=== PATIENT | male | born 1980 | race Caucasian/White ===

== ENCOUNTER 2016-06-30 12:43 | Emergency (ER) | payer OTHER ==
--- NOTE | 2016-06-30 12:49 | ER Document Report ---
ED Medical Screen (RME) - General Stated Complaint: RIGHT KNEE PAIN Time seen by provider: 12:47 Mode of Arrival: Ambulatory Information source: Patient TRAVEL OUTSIDE OF THE [place] IN LAST 30 DAYS: No - HPI Patient complains to provider of: RIGHT KNEE PAIN Onset: Yesterday Onset/Duration: Sudden Context: RIGHT KNEE PAINFUL AND SWOLLEN, HX KNEE PROBLEMS. STATES HAS DONE THIS BEFORE. NO RECENT INJURY. Quality of pain: Throbbing Severity: Severe Pain Level: 5 Associated Symptoms: None Exacerbated by: Movement, Walking Relieved by: Denies Similar symptoms previously: Yes Recently seen / treated by doctor: No Notes: 06/30/16 12:48 RIGHT KNEE SURGERY IN 2005 OR FOR BROKEN KNEE CAP - Related Data Smoking: Cigarettes Frequency of alcohol use: None Drug Abuse: None Allergies/Adverse Reactions: No Known Allergies Allergy (Verified 05/07/16 09:02) Past Medical History Pulmonary Medical History: Reports: Hx Asthma, Hx Pneumonia Denies: Hx Tuberculosis Past Surgical History: Reports: Hx Orthopedic Surgery - 2006 - Immunizations Hx Diphtheria, Pertussis, Tetanus Vaccination: No
[2016-06-30 12:50] VITALS: BP 133/75
[2016-06-30] MEDS ORDERED: MORPHINE SULFATE 10 MG/ML INJ IM ONE (14:58)
--- NOTE | 2016-06-30 15:32 | ER Document Report ---
ED General - General Chief Complaint: Knee Pain Stated Complaint: RIGHT KNEE PAIN Mode of Arrival: Ambulatory Information source: Patient Notes: 35-year-old male presents with complaints of right knee swelling of 4 day duration. Patient denies any fevers or chills nausea vomiting or diarrhea. Patient notes multiple similar episodes in the past. TRAVEL OUTSIDE OF THE [place] IN LAST 30 DAYS: No - HPI Onset: Other Onset/Duration: Persistent Quality of pain: Achy Severity: Moderate Pain Level: 2 Associated symptoms: Other Exacerbated by: Movement Relieved by: Denies Similar symptoms previously: Yes Recently seen / treated by doctor: No - Related Data Allergies/Adverse Reactions: No Known Allergies Allergy (Verified 06/30/16 12:48) Past Medical History - General Information source: Patient - Social History Smoking Status: Current Every Day Smoker Cigarette use (# per day): No Chew tobacco use (# tins/day): No Smoking Education Provided: No Frequency of alcohol use: None Drug Abuse: None Family History: Reviewed & Not Pertinent Patient has suicidal ideation: No Patient has homicidal ideation: No Pulmonary Medical History: Reports: Hx Asthma, Hx Pneumonia Denies: Hx Tuberculosis Renal/ Medical History: Denies: Hx Peritoneal Dialysis Past Surgical History: Reports: Hx Orthopedic Surgery - 2006 - Immunizations Hx Diphtheria, Pertussis, Tetanus Vaccination: No Review of Systems - Review of Systems Notes: REVIEW OF SYSTEMS: CONSTITUTIONAL : Denies fever, chills, or sweats. Denies recent illness. EENT: Denies eye, ear, throat, or mouth pain or symptoms. Denies nasal or sinus congestion or discharge. Denies throat, tongue, or mouth swelling or difficulty swallowing. CARDIOVASCULAR: Denies chest pain. Denies palpitations or racing or irregular heart beat. Denies ankle edema. RESPIRATORY: Denies cough, cold, or chest congestion. Denies shortness of breath, difficulty breathing, or wheezing. GASTROINTESTINAL: Denies abdominal pain or distention. Denies nausea, vomiting , or diarrhea. Denies blood in vomitus, stools, or per rectum. Denies black, tarry stools. Denies constipation. GENITOURINARY: Denies difficulty urinating, painful urination, burning, frequency, blood in urine, or discharge. MUSCULOSKELETAL: admits ot right knee swelling SKIN: Denies rash, lesions or sores. HEMATOLOGIC : Denies easy bruising or bleeding. LYMPHATIC: Denies swollen, enlarged glands. NEUROLOGICAL: Denies confusion or altered mental status. Denies passing out or loss of consciousness. Denies dizziness or lightheadedness. Denies headache. Denies weakness or paralysis or loss of use of either side. Denies problems with gait or speech. Denies sensory loss, numbness, or tingling. Denies seizures. PSYCHIATRIC: Denies anxiety or stress. Denies depression, suicidal ideation, or homicidal ideation. ALL OTHER SYSTEMS REVIEWED AND NEGATIVE. Dictation was performed using [employer] voice recognition software PHYSICAL EXAMINATION: GENERAL: Well-appearing, well-nourished and in no acute distress. HEAD: Atraumatic, normocephalic. EYES: Pupils equal round and reactive to light, extraocular movements intact, sclera anicteric, conjunctiva are normal. ENT: Nares patent, oropharynx clear without exudates. Moist mucous membranes. NECK: Normal range of motion, supple without lymphadenopathy LUNGS: Breath sounds clear to auscultation bilaterally and equal. No wheezes rales or rhonchi. HEART: Regular rate and rhythm without murmurs ABDOMEN: Soft, nontender, nondistended abdomen. No guarding, no rebound. No masses appreciated. Musculoskeletal: Normal range of motion, no pitting or edema. No cyanosis. miderate effusion of the right knee, previous surgical scar noted, no redness NEUROLOGICAL: Cranial nerves grossly intact. Normal speech, normal gait. Normal sensory, motor exams PSYCH: Normal mood, normal affect. SKIN: Warm, Dry, normal turgor, no rashes or lesions noted. Physical Exam - Vital signs Vitals: Temp Pulse Resp BP Pulse Ox 98 F 84 20 133/75 H 99 06/30/16 12:45 06/30/16 12:45 06/30/16 12:45 06/30/16 12:45 06/30/16 12:45 Course - Re-evaluation Re-evalutation: 06/30/16 16:19 35 yr old male presents iwth right knee swelling, pt offered folow up with ortho but prefers to have arthrocentesis 06/30/16 16:20 with consent signed, 60 cc of fluid removed and sent ot lab, pt to follow up with ortho , very strict return precautions provided to the patient for any complications After performing a Medical Screening Examination, I estimate there is LOW risk for INTRACRANIAL HEMORRHAGE, UNSTABLE SPINE FRACTURE, CENTRAL CORD SYNDROME, CAUDA EQUINA, THORACIC AORTIC DISSECTION, PNEUMOTHORAX, PERFORATED BOWEL, RUPTURED ABDOMINAL AORTIC ANEURYSM, ACUTE TENDON RUPTURE, COMPARTMENT SYNDROME, or OPEN FRACTURE, thus I consider the discharge disposition reasonable. Also, there is no evidence or peritonitis, sepsis, or toxicity. The patient and I have discussed the diagnosis and risks, and we agree with discharging home to follow-up with their primary doctor with the understanding that symptoms and presentations can change. We also discussed returning to the Emergency Department immediately if new or worsening symptoms occur. We have discussed the symptoms which are most concerning (e.g., bloody stool, fever, changing or worsening pain, vomiting) that necessitate immediate return. - Vital Signs Vital signs: Temp Pulse Resp BP Pulse Ox 98.0 F 82 20 133/75 H 99 06/30/16 12:48 06/30/16 12:48 06/30/16 12:48 06/30/16 12:48 06/30/16 12:48 - Diagnostic Test Radiology reviewed: Image reviewed, Reports reviewed - report given to patient Procedures - Joint Aspiration Right Knee Time completed: 16:00 Consent obtained: Yes Joint aspiration pre-procedure: Sterile PPE donned, Betadine prep applied, Sterile drapes applied Anesthetic type: 2% Lidocaine mL's of anesthetic: 10 Needle size: 18 Amount/type of drainage: 60 cc of thick yellow and blood tinged fluid Number of attempts: 2 Complications: No Discharge - Discharge Clinical Impression: Effusion of knee joint right Knee pain Qualifiers: Laterality: right Chronicity: acute Qualified Code(s): M25.561 - Pain in right knee Condition: Stable Disposition: HOME, SELF-CARE Instructions: Suspected Internal Knee Injury ([facility]) Prescriptions: Oxycodone HCl/Acetaminophen [Percocet 5-325 mg Tablet] 1 - 2 tab PO Q4H PRN #15 tablet PRN Reason: Referrals: ANDREW HALL MD [ACTIVE STAFF] - Follow up in 3-5 days
[2016-06-30] MEDS ORDERED: LIDOCAINE 2% INJ (20 MG/ML) 20 ML MDV INJ ONE (15:37)
[2016-06-30 16:45] LABS: OTHER CRYSTALS NONE OBSERVED
[2016-06-30 21:05] LABS: FLUID TYPE SYNOVIAL
[2016-06-30 21:06] LABS: FLUID APPEARANCE CLOUDY
[2016-06-30 21:07] LABS: FLUID RBC SIDE 1 124; FLUID RBC SIDE 2 130
[2016-06-30 21:08] LABS: FLUID RBC DILUENT USED NONE USED; FLUID RBC DILUTION FACTOR 1; TOTAL RBC SQUARES COUNTED FLD 25
== END 2016-06-30 16:20 | disposition home or self-care (01) ==
LOC: ER 12:43
PROC: 0S9C3ZZ Drainage of Right Knee Joint, Percutaneous Approach (ICD-10-PCS; principal; 2016-06-30)
DX: M25.461 Effusion, right knee (principal); M25.561 Pain in right knee; F17.200 Nicotine dependence, unspecified, uncomplicated; J45.909 Unspecified asthma, uncomplicated; Z98.890 Other specified postprocedural states
CPT/HCPCS: 99284; 96372; 89050; 89060; 73564; 20610; J2270

== ENCOUNTER 2016-12-03 14:28 | Emergency (ER) | payer SELFPAY ==
[2016-12-03] MEDS ORDERED: CEFTRIAXONE INJ 1000 MG VIAL IM ONE (15:32)
[2016-12-03] MEDS ORDERED: LIDOCAINE 1% INJ-PF (10 MG/ML) 30 ML SDV INJ ONE (15:32)
--- NOTE | 2016-12-03 15:32 | ER Document Report ---
HPI - HPI Pain Level: 5 Notes: Patient is a 36-year-old male presents the ED complaining of right lateral ankle , foot, and lower leg pain and redness x2 days. Patient states that he has a history of gout and believes that he might have another gouty attack. Patient also complains of left lateral ankle discomfort 1 day. Denies any injury. He has not had any medicines for his symptoms. He does not have a primary care provider. Denies any drug allergies. He does not take any medicines daily. Nondiabetic. Denies any other significant past medical history. Does smoke but does not do any other illicit drugs. Denied alcohol use. Patient states that he still eating and drinking without any problems. Denies any headache, fever, URI, sore throat, chest pain, palpitations, syncope, cough, wheeze, shortness of breath, abdominal pain,/vomiting/diarrhea, dysuria, muscle weakness /paralysis. - ROS Notes: REVIEW OF SYSTEMS: CONSTITUTIONAL : Denies fever, chills, or sweats. Denies recent illness. EENT: Denies eye, ear, throat, or mouth pain or symptoms. Denies nasal or sinus congestion or discharge. Denies throat, tongue, or mouth swelling or difficulty swallowing. CARDIOVASCULAR: Denies chest pain. Denies palpitations or racing or irregular heart beat. Denies ankle edema. RESPIRATORY: Denies cough, cold, or chest congestion. Denies shortness of breath, difficulty breathing, or wheezing. GASTROINTESTINAL: Denies abdominal pain or distention. Denies nausea, vomiting , or diarrhea. Denies blood in vomitus, stools, or per rectum. Denies black, tarry stools. Denies constipation. GENITOURINARY: Denies difficulty urinating, painful urination, burning, frequency, blood in urine, or discharge. MUSCULOSKELETAL: see hpi SKIN: see hpi NEUROLOGICAL: no numbness/tingling. No HOGAN. see hpi. ALL OTHER SYSTEMS REVIEWED AND NEGATIVE. Dictation was performed using [employer] voice recognition software - CARDIOVASCULAR Cardiovascular: DENIES: Chest pain - REPRODUCTIVE Reproductive: DENIES: : - DERM Skin Color: Erythema Past Medical History - Social History Smoking Status: Current Every Day Smoker Chew tobacco use (# tins/day): No Frequency of alcohol use: None Drug Abuse: None Family History: Reviewed & Not Pertinent Patient has suicidal ideation: No Patient has homicidal ideation: No Pulmonary Medical History: Reports: Hx Asthma, Hx Pneumonia Denies: Hx Tuberculosis Renal/ Medical History: Denies: Hx Peritoneal Dialysis Musculoskeltal Medical History: Reports Hx Arthritis - gout Past Surgical History: Reports: Hx Orthopedic Surgery - 2007 - Immunizations Hx Diphtheria, Pertussis, Tetanus Vaccination: No Vertical Provider Document - CONSTITUTIONAL Agree With Documented VS: Yes Notes: PHYSICAL EXAMINATION: GENERAL: Well-appearing, well-nourished and in no acute distress. NECK: Normal range of motion, supple without lymphadenopathy LUNGS: Breath sounds clear to auscultation bilaterally and equal. No wheezes rales or rhonchi. HEART: Regular rate and rhythm without murmurs, rubs, gallops. ABDOMEN: Soft, nontender, nondistended abdomen. No guarding, no rebound. No masses appreciated. Normal bowel sounds present. No CVA tenderness bilaterally. Musculoskeletal: Rt LE: FROM to passive/active. Strength 5+/5. Sarah negative b /l. + erythema to the rt lateral ankle, distal lower leg, and dorsal foot. 1 + edema to the ankle/foot. 2+ pulses. sensation intact. No abscess, discharge. + lymphangitis to lower leg. No prox lymphadenopathy. Extremities: No cyanosis, clubbing, or edema b/l. Peripheral pulses 2+. Capillary refill less than 2 seconds. NEUROLOGICAL: Normal sensory, motor exams PSYCH: Normal mood, normal affect. SKIN: see MSK exam. - INFECTION CONTROL TRAVEL OUTSIDE OF THE [place] IN LAST 30 DAYS: No - RESPIRATORY O2 Sat by Pulse Oximetry: 98 Course - Re-evaluation Re-evalutation: 12/03/16 17:48 Diagnostic code: not lead-induced. diagnosis would not allow me to choose any other option. 12/03/16 20:13 Patient is an afebrile, well-hydrated, 36-year-old male who presents to the ED with cellulitis to his right lower extremity, ? Acute gout as well. Vitals are stable. Reviewed case with Dr. Horta also evaluated the patient. He recommended antibiotics, blood work, and consult with orthopedics. CBC, CMP, ESR, CRP, and BC's obtained. Rocephin 1g given IV[address] Dr. Bruce, Ortho on-call , who came in and evaluated the patient. See Ortho note. Pt cleared for discharge on Clindamycin 300mg QID along with Colchicine as directed. CBC unremarkable. Mildly elevated CRP and ESR. CMP showed mildly elevated LFT's. Conservative measures for symptoms. Recheck with PCM/Ortho in 2-3 days. May return to the ED for a recheck as well. Return to the ED with any worsening/ concerning symptoms otherwise as reviewed in discharge. Patient is in agreement. - Vital Signs Vital signs: Temp Pulse Resp BP Pulse Ox 98.2 F 93 18 122/64 98 12/03/16 14:32 12/03/16 14:32 12/03/16 14:32 12/03/16 14:32 12/03/16 14:32 - Laboratory Result Diagrams: 12/03/16 15:55 12/03/16 15:55 Discharge - Discharge Clinical Impression: Cellulitis Qualifiers: Site of cellulitis: extremity Site of cellulitis of extremity: lower extremity Laterality: right Qualified Code(s): L03.115 - Cellulitis of right lower limb Gout Qualifiers: Gout site: ankle Gout etiology: lead-induced Encounter type: initial encounter Chronicity: acute Laterality: right Qualified Code(s): T56.0X1A - Toxic effect of lead and its compounds, accidental (unintentional), initial encounter Condition: Stable Disposition: HOME, SELF-CARE Additional Instructions: Rest, Ice, Compression, Elevation Tylenol/ibuprofen as needed Take medications as directed Light stretches daily Strength exercises as able F/u with your PCM/ED in 2-3 days for a recheck Consider consult(s) with Orthopedics for ongoing/worsening symptoms Return to the ED with any worsening symptoms and/or development of fever, headache, chest pain, palpitations, syncope, shortness of breath, trouble breathing, abdominal pain, n/v/d, muscle weakness/paralysis, numbness/tingling, abscess, red streaks, purulent discharge, or other worsening symptoms that are concerning to you. Cellulitis You have an infection of your skin and underlying soft tissues called cellulitis. This is due to bacteria, which can enter through any break in the skin, or even through an irritated hair follicle. Untreated, cellulitis will usually worsen. Antibiotics are required. Usually, warm packs or warm soaks, and elevation of the infected area are recommended. You should start getting better within 24 to 36 hours. Most infections respond quickly to the right medication. Follow-up care is important, however, to check for abscess (boil) formation, unsuspected foreign body, or resistant infection. If you develop fever, chills, or if the area of infection is becoming rapidly more swollen or painful, call the doctor at once. Gout You have been diagnosed as having gout. Gout is a problem caused by an excess of uric acid, a natural chemical found in the body. The cause of this disease is unknown. Gout arthritis occurs when crystals of uric acid form in the joints. The big toe is the most common joint involved, but any joint can become affected. Persons with gout may also form uric acid kidney stones, resulting in flank pain and blood in the urine. Nodules of uric acid may form under the skin. The first step of treatment is to decrease the inflammation in the joint with antiinflammatory medication. Medication to lower the uric acid level in the blood may then be prescribed. This medication should be taken regularly, as any sudden change in dosage may provoke an attack of gout. Some foods, such as red meat, can provoke an attack in some gout sufferers. Call the doctor if new symptoms arise, or if you do not improve. Gout Diet Changing your diet can decrease the uric acid in your blood. High levels of uric acid cause gouty arthritis and uric acid kidney stones. If you have gout , you should avoid meats that are high in purine. Meat products to avoid include liver, kidneys, and brains. In general, poultry is better than red meats. Seafoods to avoid include anchovies, sardines, levine, mackerel, and scallops. In addition to limiting purine-rich foods, people with gout should limit protein intake to 10-15% of total calories. Carbohydrate intake should be around 50% of total daily calories. Limit fat intake to 30% of total daily calories. Cholesterol intake should be less than 300 mg/day. Maintain or achieve a healthy body weight. Weight loss should be gradual. Rapid weight loss can actually increase uric acid levels temporarily. Alcohol, especially beer, should be avoided. Get plenty of fluids. This dilutes urinary uric acid, and helps prevent uric acid kidney stones. Drink eight to twelve cups of water daily. Prescriptions: Clindamycin HCl [Cleocin 300 mg Capsule] 300 mg PO QID #40 capsule Colchicine [Colchicine 0.6 mg Tablet] 0.6 mg PO ASDIR #3 tablet Forms: Return to Work Referrals: FLORENCIA BRUCE DO [ACTIVE STAFF] - Follow up as needed [facility] [Provider Group] - Follow up as needed [facility] [Provider Group] - Follow up as needed
[2016-12-03 16:12] LABS: ABSOLUTE EOSINOPHILS # (AUTO) 0.2 10^3/uL (0.0-0.6); ABSOLUTE LYMPHOCYTES (AUTO) 1.6 10^3/uL (0.5-4.7); ABSOLUTE MONOCYTES (AUTO) 0.5 10^3/uL (0.1-1.4); ABSOLUTE NEUT (AUTO) 5.9 10^3/uL (1.7-8.2); BASOPHILS % (AUTO) 0.6 % (0-2); EOSINOPHILS % (AUTO) 2.9 % (0-6); HEMATOCRIT 44.2 % (37.9-51.0); HEMOGLOBIN 14.4 g/dL (13.5-17.0); LYMPHOCYTES % (AUTO) 18.9 % (13-45); MEAN CORPUSCULAR HEMOGLOBIN 28.9 pg (27.0-33.4); MEAN CORPUSCULAR HGB CONC 32.6 g/dL (32.0-36.0); MEAN CORPUSCULAR VOLUME 89 fl (80-97); MONOCYTES % (AUTO) 5.5 % (3-13); RED BLOOD COUNT 4.98 10^6/uL (4.35-5.55); RED CELL DISTRIBUTION WIDTH 13.5 % (11.5-14.0); SEGMENTED NEUTROPHILS % (AUTO) 72.1 % (42-78); WHITE BLOOD COUNT 8.2 10^3/uL (4.0-10.5)
[2016-12-03] MEDS ORDERED: CEFTRIAXONE INJ 1000 MG VIAL IV ONE (16:24)
[2016-12-03 16:33] LABS: ALANINE AMINOTRANSFERASE 104 U/L (21-72); ALBUMIN 4.1 g/dL (3.5-5.0); ALKALINE PHOSPHATASE 78 U/L (38-126); ANION GAP 11 (5-19); ASPARTATE AMINO TRANSFERASE 102 U/L (17-59); BILIRUBIN,DIRECT 0.3 mg/dL (0.0-0.4); BILIRUBIN,TOTAL 0.7 mg/dL (0.2-1.3); BLOOD UREA NITROGEN 8 mg/dL (7-20); C-REACTIVE PROTEIN 52.4 mg/L (<10.0); CALCIUM 9.1 mg/dL (8.4-10.2); CARBON DIOXIDE 29 mmol/L (22-30); CHLORIDE 101 mmol/L (98-107); CREATININE RESULT 0.83 mg/dL (0.52-1.25); GLUCOSE 77 mg/dL (75-110); POTASSIUM 3.6 mmol/L (3.6-5.0); SODIUM 140.8 mmol/L (137-145); TOTAL PROTEIN 7.2 g/dL (6.3-8.2)
[2016-12-03] MEDS ORDERED: KETOROLAC TROMETHAMINE INJ/PF 30 MG/1 ML SDV IV ONE (16:34)
[2016-12-03 16:54] LABS: ERYTHROCYTE SEDIMENTATION RATE 31 mm/hr (0-15)
--- NOTE | 2016-12-03 17:44 | PDOC CONSULTATION ---
History of Present Illness Patient complains of: Right ankle pain History of Present Illness: ROSMERY POLK JR is a 36 year old male presents with right ankle pain. States for the past 48 hours he had redness swelling and pain of his ankle which has worsened. Patient denies fever chills or sweats. Does have history of gout and feels that this is somewhat similar to his previous gouty symptoms. He is unable to determine what exactly exacerbates his gout. He does not take antigout medication and has no primary care physician. He denies numbness or tingling. Pain 11/03. Past Medical History Pulmonary Medical History: Reports: Asthma, Pneumonia Denies: Tuberculosis Musculoskeltal Medical History: Reports: Arthritis - gout Past Surgical History Past Surgical History: Reports: Orthopedic Surgery - 2007 Social History Smoking Status: Current Every Day Smoker Frequency of Alcohol Use: None Hx Recreational Drug Use: No Hx Prescription Drug Abuse: No Family History Family History: Reviewed & Not Pertinent Parental Family History Reviewed: No Children Family History Reviewed: No Sibling(s) Family History Reviewed.: No Medication/Allergy Home Medications: Cyclobenzaprine HCl [Flexeril 10 Mg Tablet] 10 mg PO TID PRN #15 tablet Hydrocodone Bit/Acetaminophen [Hydrocodon-Acetaminophen 5-325] 1 each PO ASDIR PRN #15 tablet 07/12/15 Cetirizine HCl/Pseudoephedrine [Zyrtec-D 12 Hour Tablet] 1 tab.sr PO Q12 #30 tab.sr 05/07/16 Prednisone [Deltasone 20 mg Tablet] 3 tab PO DAILY 5 Days 05/07/16 Tramadol HCl [Ultram 50 mg Tablet] 50 mg PO ASDIR PRN #20 tablet 05/07/16 Oxycodone HCl/Acetaminophen [Percocet 5-325 mg Tablet] 1 - 2 tab PO Q4H PRN #15 tablet 06/30/16 Allergies/Adverse Reactions: No Known Allergies Allergy (Verified 12/03/16 14:30) Review of Systems Constitutional: ABSENT: chills, fever(s), headache(s), weight gain, weight loss Eyes: ABSENT: visual disturbances Ears: ABSENT: hearing changes Cardiovascular: ABSENT: chest pain, dyspnea on exertion, edema, orthropnea, palpitations Respiratory: ABSENT: cough, hemoptysis Gastrointestinal: ABSENT: abdominal pain, constipation, diarrhea, hematemesis, hematochezia, nausea, vomiting Genitourinary: ABSENT: dysuria, hematuria Musculoskeletal: PRESENT: as per HPI Integumentary: PRESENT: rash. ABSENT: wounds Neurological: ABSENT: abnormal gait, abnormal speech, confusion, dizziness, focal weakness, syncope Psychiatric: ABSENT: anxiety, depression, homidical ideation, suicidal ideation Endocrine: ABSENT: cold intolerance, heat intolerance, menstrual abnormalities, polydipsia, polyuria Hematologic/Lymphatic: ABSENT: easy bleeding, easy bruising, lymphadenopathy Physical Exam Vital Signs: Temp Pulse Resp BP Pulse Ox 98.2 F 93 18 122/64 98 12/03/16 14:32 12/03/16 14:32 12/03/16 14:32 12/03/16 14:32 12/03/16 15:37 Intake & Output 12/02/16 12/03/16 12/04/16 06:59 06:59 06:59 Weight 87.09 kg General appearance: PRESENT: no acute distress, well-developed, well-nourished Head exam: PRESENT: atraumatic, normocephalic Eye exam: PRESENT: conjunctiva pink, EOMI, PERRLA. ABSENT: scleral icterus Ear exam: PRESENT: normal external ear exam Mouth exam: PRESENT: moist, tongue midline Neck exam: PRESENT: full ROM. ABSENT: carotid bruit, JVD, lymphadenopathy, thyromegaly Respiratory exam: PRESENT: unlabored Cardiovascular exam: PRESENT: RRR. ABSENT: diastolic murmur, rubs, systolic murmur Pulses: PRESENT: normal dorsalis pedis pul, +2 pedal pulses bilateral Vascular exam: PRESENT: normal capillary refill GI/Abdominal exam: PRESENT: normal bowel sounds, soft. ABSENT: distended, guarding, mass, organolmegaly, rebound, tenderness Rectal exam: PRESENT: deferred Musculoskeletal exam: PRESENT: other - Right ankle: Redness and erythema along the lateral aspect of the ankle extending from the dorsum of the foot to just proximal to the ankle joint. There is pain with touch mild pain with terminal dorsiflexion plantarflexion of the foot. No palpable effusion or effusion appreciated on examination. No sensory deficits. Left ankle: Mild erythema along the dorsum of the foot with out tenderness to palpation. No pain with range of motion. Neurological exam: PRESENT: alert, awake, oriented to person, oriented to place , oriented to time, oriented to situation, CN II-XII grossly intact. ABSENT: motor sensory deficit Psychiatric exam: PRESENT: appropriate affect, normal mood. ABSENT: homicidal ideation, suicidal ideation Skin exam: PRESENT: dry, intact, warm. ABSENT: cyanosis, rash Results Laboratory Results: 12/03/16 15:55 12/03/16 15:55 12/03/16 12/03/16 15:55 15:55 WBC 8.2 RBC 4.98 Hgb 14.4 Hct 44.2 MCV 89 MCH 28.9 MCHC 32.6 RDW 13.5 Plt Count 170 Seg Neutrophils % 72.1 Lymphocytes % 18.9 Monocytes % 5.5 Eosinophils % 2.9 Basophils % 0.6 Absolute Neutrophils 5.9 Absolute Lymphocytes 1.6 Absolute Monocytes 0.5 Absolute Eosinophils 0.2 Absolute Basophils 0.0 Sodium 140.8 Potassium 3.6 Chloride 101 Carbon Dioxide 29 Anion Gap 11 BUN 8 Creatinine 0.83 Est GFR ( Amer) > 60 Est GFR (Non-Af Amer) > 60 Glucose 77 Calcium 9.1 Total Bilirubin 0.7 AST 102 H ALT 104 H Alkaline Phosphatase 78 C-Reactive Protein 52.4 H Total Protein 7.2 Albumin 4.1 Assessment & Plan - Diagnosis (1) Ankle cellulitis Is this a current diagnosis for this admission?: Yes (2) Gout Qualifiers: Gout site: ankle Encounter type: initial encounter Chronicity: acute Laterality: right Is this a current diagnosis for this admission?: YesPlan: Patient has findings of both cellulitis and possible gouty arthritis I am unable to determine definitively which is the cause of his issue he does have some small skin lesions secondary to bug bites which may have caused his cellulitis given the fact he has redness bilaterally I feel this is more consistent with gout. I have reviewed patient's laboratory values which demonstrate mildly elevated sed rate with CRP of 5.2 no evidence of white count or left shift. At this point patient will receive IV antibiotics in the emergency room and sent home on p.o. antibiotics and a prescription for colchicine. If patient's symptoms do not improve he will follow-up at the emergency room. Otherwise patient should follow-up in my office within the next 5-7 days for recheck.
[2016-12-03 18:36] VITALS: BP 122/68
== END 2016-12-03 18:35 | disposition home or self-care (01) ==
LOC: ER 14:28
DX: T56.0X1A Toxic effect of lead and its compounds, accidental (unintentional), initial encounter (principal); L03.115 Cellulitis of right lower limb; M25.571 Pain in right ankle and joints of right foot; M79.604 Pain in right leg; F17.200 Nicotine dependence, unspecified, uncomplicated
CPT/HCPCS: 99283; 96375; 96365; 36415; 87040; 85025; 85652; 86140; 80053; J1885; J0696

== ENCOUNTER 2017-09-03 07:29 | Emergency (ER) | payer SELFPAY ==
--- NOTE | 2017-09-03 07:55 | ER Document Report ---
HPI - HPI Patient complains to provider of: Right knee pain Onset: Yesterday Onset/Duration: Gradual Pain Level: 5 Context: 36-year-old male with a history of fracture patella, medial meniscal tear suspected 1 year ago, gout 1 year ago developed right medial knee pain and something popping out and in yesterday. The knee started swelling last night. The pain is 5/5. No fever or chills. No recent injury. He is unable to extend fully due to the swelling of the joint. Associated Symptoms: None Exacerbated by: Walking Relieved by: Denies - ROS ROS below otherwise negative: Yes Systems Reviewed and Negative: Yes All other systems reviewed and negative - REPRODUCTIVE Reproductive: DENIES: : Past Medical History - General Information source: Patient - Social History Smoking Status: Current Some Day Smoker Frequency of alcohol use: None Drug Abuse: None Lives with: Spouse/Significant other Family History: Reviewed & Not Pertinent Pulmonary Medical History: Reports: Hx Asthma, Hx Pneumonia Renal/ Medical History: Denies: Hx Peritoneal Dialysis Musculoskeltal Medical History: Reports Hx Arthritis - gout Past Surgical History: Reports: Hx Orthopedic Surgery - 2006 - Immunizations Hx Diphtheria, Pertussis, Tetanus Vaccination: No Vertical Provider Document - CONSTITUTIONAL Agree With Documented VS: Yes Exam Limitations: No Limitations - INFECTION CONTROL TRAVEL OUTSIDE OF THE [place] IN LAST 30 DAYS: No - HEENT HEENT: Normal ENT Exam - NECK Neck: Supple - RESPIRATORY Respiratory: Breath Sounds Normal, No Respiratory Distress - CARDIOVASCULAR Cardiovascular: Regular Rate, Regular Rhythm - MUSCULOSKELETAL/EXTREMETIES Musculoskeletal/Extremeties: Tender Notes: Medial right knee, large effusion, not red but it is warm, neurovascular intact distally with 2+ DP. - NEURO Level of Consciousness: Awake, Alert Motor/Sensory: No Motor Deficit, No Sensory Deficit - DERM Integumentary: Warm, Dry, No Rash Course - Re-evaluation Re-evalutation: 09/03/17 10:14 Labs are normal, x-ray confirms the effusion that I can feel on physical exam. 09/03/17 10:[address] la for [facility], referral to [place]. - Vital Signs Vital signs: Temp Pulse Resp BP Pulse Ox 97.8 F 88 18 112/87 H 99 09/03/17 07:35 09/03/17 07:35 09/03/17 07:35 09/03/17 07:35 09/03/17 07:35 - Laboratory Result Diagrams: 09/03/17 09:36 09/03/17 09:36 Procedures - Immobilization Right Knee Time completed: 10:41 Pre-Proc Neuro Vasc Exam: Normal Immobilizer type: Knee immobilizer Performed by: PCT Post-Proc Neuro Vasc Exam: Normal Alignment checked and good: Yes Notes: 09/03/17 10:41 crutches fitted also Discharge - Discharge Clinical Impression: right knee pain and effusion Condition: Good Disposition: HOME, SELF-CARE Instructions: Anti-Inflammatory Medication ([facility]), Use of Crutches ([facility]), Ice & Elevation ([facility]), Knee Immobilizing Splint ([facility]) Additional Instructions: Anti-inflammatory medication as prescribed Pain medication for a day or 2 Knee immobilizer Crutches Follow-up Dr. marlow Prescriptions: Hydrocodone Bit/Acetaminophen [Hydrocodon-Acetaminophen 5-325] 1 each PO Q4HP PRN #15 tablet PRN Reason: Indomethacin [Indocin 50 Mg Capsule] 50 mg PO TID #20 capsule Forms: Return to Work Referrals: MONSE ROCKWELL MD [ACTIVE STAFF] - Follow up tomorrow (call for appointment)
[2017-09-03] MEDS ORDERED: IBUPROFEN 800 MG TABLET PO ONE (09:08)
[2017-09-03] MEDS ORDERED: ACETAMINOPHEN 325 MG TABLET PO ONE (09:08)
[2017-09-03] MEDS ORDERED: OXYCODONE HCL IR 5 MG TABLET PO ONE (09:21)
--- NOTE | 2017-09-03 09:36 | RADIOLOGY REPORT (SQ) ---
EXAM DESCRIPTION: KNEE RIGHT 4 VIEWS COMPLETED DATE/TIME: 09/03/2017 8:41 am REASON FOR STUDY: swelling COMPARISON: Right knee films 10/09/2012, 05/10/2013, 12/23/2013, 06/30/2016 NUMBER OF VIEWS: Four views. TECHNIQUE: AP, lateral, and both oblique radiographic images acquired of the right knee. LIMITATIONS: None. FINDINGS: MINERALIZATION: Osteopenic BONES: Patient has had an old patellar fracture. The articular surface of the patella and femur at t he patellofemoral joint exhibits osteoarthritis with articular surface sclerosis and osteophyte forma tion. No acute fracture. JOINT: Large suprapatellar knee joint effusion. There are intra-articular loose bodies along the pos terior intercondylar notch region. Advanced patellofemoral osteoarthritis. No significant joint space narrowing in the medial or latera l compartment. SOFT TISSUES: No soft tissue swelling. No radio-opaque foreign body. OTHER: No other significant finding. IMPRESSION: Large suprapatellar knee joint effusion with advanced osteoarthritis in the patellofemor al compartment. Intra-articular loose bodies. No acute fracture or malalignment. TECHNICAL DOCUMENTATION: JOB ID: [id number] [employer]- All Rights Reserved Reading location - IP/workstation name: [email or web address]
[2017-09-03 09:50] LABS: ABSOLUTE BASOPHILS # (AUTO) 0.1 10^3/uL (0.0-0.2); ABSOLUTE EOSINOPHILS # (AUTO) 0.1 10^3/uL (0.0-0.6); ABSOLUTE LYMPHOCYTES (AUTO) 2.5 10^3/uL (0.5-4.7); ABSOLUTE MONOCYTES (AUTO) 0.8 10^3/uL (0.1-1.4); ABSOLUTE NEUT (AUTO) 6.7 10^3/uL (1.7-8.2); BASOPHILS % (AUTO) 0.8 % (0-2); EOSINOPHILS % (AUTO) 1.2 % (0-6); HEMATOCRIT 41.2 % (37.9-51.0); HEMOGLOBIN 13.7 g/dL (13.5-17.0); LYMPHOCYTES % (AUTO) 24.8 % (13-45); MEAN CORPUSCULAR HEMOGLOBIN 27.2 pg (27.0-33.4); MEAN CORPUSCULAR HGB CONC 33.3 g/dL (32.0-36.0); MEAN CORPUSCULAR VOLUME 81 fl (80-97); MONOCYTES % (AUTO) 7.8 % (3-13); PLATELET COUNT 220 10^3/uL (150-450); RED BLOOD COUNT 5.06 10^6/uL (4.35-5.55); RED CELL DISTRIBUTION WIDTH 13.9 % (11.5-14.0); SEGMENTED NEUTROPHILS % (AUTO) 65.4 % (42-78); TOTAL CELLS COUNTED % (AUTO) 100 %; WHITE BLOOD COUNT 10.2 10^3/uL (4.0-10.5)
[2017-09-03 10:02] LABS: ALANINE AMINOTRANSFERASE 25 U/L (21-72); ALKALINE PHOSPHATASE 83 U/L (38-126); ANION GAP 8 (5-19); ASPARTATE AMINO TRANSFERASE 15 U/L (17-59); BILIRUBIN,DIRECT 0.1 mg/dL (0.0-0.4); BILIRUBIN,TOTAL 0.4 mg/dL (0.2-1.3); BLOOD UREA NITROGEN 15 mg/dL (7-20); CALCIUM 9.4 mg/dL (8.4-10.2); CARBON DIOXIDE 27 mmol/L (22-30); CHLORIDE 104 mmol/L (98-107); GLUCOSE 96 mg/dL (75-110); POTASSIUM 4.7 mmol/L (3.6-5.0); TOTAL PROTEIN 6.9 g/dL (6.3-8.2); URIC ACID 4.1 mg/dL (3.5-8.5)
[2017-09-03 10:47] VITALS: BP 147/96
== END 2017-09-03 10:47 | disposition home or self-care (01) ==
LOC: ER 07:29
DX: M25.461 Effusion, right knee (principal); M25.561 Pain in right knee; F17.200 Nicotine dependence, unspecified, uncomplicated
CPT/HCPCS: 99284; 36415; 84550; 85025; 80053; 73564; L1830

== ENCOUNTER 2018-05-25 23:04 | Inpatient (IN) | payer SELFPAY ==
[2018-05-25] MEDS ORDERED: HYDROCODONE/ACETAMINOPHEN 5-325 MG TABLET PO ONE (23:34)
--- NOTE | 2018-05-26 00:03 | RADIOLOGY REPORT (SQ) ---
EXAM DESCRIPTION: XR FINGERS COMPLETED DATE/TME: 05/25/2018 00:00 CLINICAL HISTORY: 37 years, Male, Metal splinter removed/ infection/ swollen COMPARISON: None. NUMBER OF VIEWS: 3 views of the left second digit TECHNIQUE: 3 views left second digit LIMITATIONS: None. FINDINGS: Diffuse soft tissue swelling. Negative for acute fracture or dislocation. No definitive soft tissue gas. Soft tissue injury along the palmar aspect near the middle phalanx is suggested. IMPRESSION: Soft tissue swelling/soft tissue injury. No acute osseous abnormality. copyright 2010 [employer]- All Rights Reserved
[2018-05-26 00:23] LABS: HEMOGLOBIN 10.7 g/dL (13.5-17.0); MEAN CORPUSCULAR HEMOGLOBIN 26.7 pg (27.0-33.4); MEAN CORPUSCULAR HGB CONC 33.4 g/dL (32.0-36.0); MEAN CORPUSCULAR VOLUME 80 fl (80-97); PLATELET COUNT 550 10^3/uL (150-450); RED CELL DISTRIBUTION WIDTH 15.4 % (11.5-14.0); WHITE BLOOD COUNT 25.3 10^3/uL (4.0-10.5)
[2018-05-26 00:36] LABS: ALANINE AMINOTRANSFERASE 108 U/L (21-72); ALBUMIN 2.9 g/dL (3.5-5.0); ALKALINE PHOSPHATASE 158 U/L (38-126); ANION GAP 11 (5-19); ASPARTATE AMINO TRANSFERASE 131 U/L (17-59); BILIRUBIN,DIRECT 0.5 mg/dL (0.0-0.4); BILIRUBIN,TOTAL 0.5 mg/dL (0.2-1.3); BLOOD UREA NITROGEN 17 mg/dL (7-20); CALCIUM 8.3 mg/dL (8.4-10.2); CARBON DIOXIDE 26 mmol/L (22-30); CHLORIDE 96 mmol/L (98-107); GLUCOSE 118 mg/dL (75-110); POTASSIUM 3.9 mmol/L (3.6-5.0); SODIUM 133.2 mmol/L (137-145); TOTAL PROTEIN 8.1 g/dL (6.3-8.2)
--- NOTE | 2018-05-26 00:36 | ER Document Report ---
ED General - General Chief Complaint: Hand Pain Stated Complaint: FINGER INJURY Time Seen by Provider: 05/25/18 23:27 Notes: Patient is a 37-year-old male who presents to the emergency department with a chief complaint of left index finger pain and swelling. He states he has been working on his car and he got a piece of metal in his finger 2 days ago. He noticed that he was having increased swelling today. There has been purulent drainage draining from the site. He also has multiple other ulcerations on other fingers that he states is due to working on his car. He denies any fever. He does have a history of IV drug abuse. His last time he used was 1 month ago. He does smoke cigarettes. TRAVEL OUTSIDE OF THE [place] IN LAST 30 DAYS: No - Related Data Allergies/Adverse Reactions: No Known Allergies Allergy (Verified 09/03/17 07:30) Past Medical History - Social History Smoking Status: Current Every Day Smoker Chew tobacco use (# tins/day): No Frequency of alcohol use: None Drug Abuse: None Family History: Reviewed & Not Pertinent Patient has suicidal ideation: No Patient has homicidal ideation: No Pulmonary Medical History: Reports: Hx Asthma, Hx Pneumonia Denies: Hx Tuberculosis Renal/ Medical History: Denies: Hx Peritoneal Dialysis Musculoskeletal Medical History: Reports Hx Arthritis - gout Past Surgical History: Reports: Hx Orthopedic Surgery - 2007 - Immunizations Hx Diphtheria, Pertussis, Tetanus Vaccination: No Review of Systems - Review of Systems Notes: REVIEW OF SYSTEMS: CONSTITUTIONAL : Denies recent illness. Denies recent unintentional weight loss. Denies fever, chills, or sweats. EENT: Denies eye, ear, throat, or mouth pain, discharge, or symptoms. Denies nasal or sinus congestion. CARDIOVASCULAR: Denies chest pain. RESPIRATORY: Denies shortness of breath, cough, congestion, difficulty [place] athing, or wheezing. GASTROINTESTINAL: Denies nausea, vomiting, and diarrhea. Denies abdominal pain. Denies constipation. GENITOURINARY: Denies difficulty urinating, burning, blood in urine, urgency or frequency. MUSCULOSKELETAL: Denies neck and back pain. Denies joint pain or swelling. SKIN: See HPI HEMATOLOGIC : Denies easy bruising or bleeding. LYMPHATIC: Denies swollen, painful, enlarged glands. NEUROLOGICAL: Denies no numbness or tingling denies weakness. Denies headache. Denies altered mental status. Denies alteration in speech. PSYCHIATRIC: Denies stress, anxiety, alteration in sleep patterns, or depression. All other systems reviewed and negative. Physical Exam - Vital signs Vitals: Temp Pulse Resp BP Pulse Ox 98.7 F 112 H 18 142/81 H 91 L 05/25/18 23:20 05/25/18 23:20 05/25/18 23:20 05/25/18 23:20 05/25/18 23:20 - Notes Notes: PHYSICAL EXAMINATION: GENERAL: Appears unkempt, no acute distress. HEAD: Normocephalic, atraumatic. EYES: PERRL, conjunctiva normal, all extraocular movements intact, sclera nonicteric ENT: Moist mucous membranes. NECK: Supple, no noticeable swelling, redness, rash. Normal range of motion. LUNGS: Equal breath sounds bilaterally and clear to auscultation. No wheezes rales or rhonchi. CARDIOVASCULAR: S1-S2, tachycardic, regular rhythm. Radial pulses 2+, normal. ABDOMEN: Normoactive bowel sounds. Soft, nontender, no guarding, no rebound tenderness, and no masses palpated. EXTREMITIES: Normal strength and range of motion, no pitting or edema. No cyanosis. NEUROLOGICAL: Moves all extremities upon command. Strength 5/5 in all extremities. PSYCH: Normal mood, normal affect. SKIN: Warm, dry. Multiple ulcerations noted to multiple fingers. Abscess noted to left index finger DIP. Patient unable to flex at the DIP joint. Course - Re-evaluation Re-evalutation: 05/26/18 00:00 Based off patient's physical exam and swelling, there is a possibility she can be septic from cellulitis. He is tachycardic upon presentation to the emergency department. Labs will be sent for further evaluation. He will also have a x- ray of his left index finger to evaluate for osteomyelitis. 05/26/18 00:53 Patient's white count is 25,000 with a shift to the left. I spoke with Dr. Craig and about the patient's cellulitis and swelling at the DIP joint. He is in agreement's to have the patient admitted under the hospitalist service and have orthopedic consult. 05/26/18 01:[address] Sam, the hospitalist on-call. The patient will be admitted to the hospitalist service. I have discussed this with the patient and he is in agreement. - Vital Signs Vital signs: Temp Pulse Resp BP Pulse Ox 98.7 F 112 H 18 142/81 H 91 L 05/25/18 23:20 05/25/18 23:20 05/25/18 23:20 05/25/18 23:20 05/25/18 23:20 - Laboratory Result Diagrams: 05/26/18 00:02 05/26/18 00:02 Laboratory results interpreted by me: 05/26/18 05/26/18 05/26/18 00:02 00:02 01:07 WBC 25.3 H RBC 4.00 L Hgb 10.7 L Hct 32.0 L MCH 26.7 L RDW 15.4 H Plt Count 550 H Seg Neuts % (Manual) 85 H Lymphocytes % (Manual) 12 L Abs Neuts (Manual) 21.5 H Sodium 133.2 L Chloride 96 L Glucose 118 H Lactic Acid < 0.5 L Calcium 8.3 L Direct Bilirubin 0.5 H AST 131 H ALT 108 H Alkaline Phosphatase 158 H Albumin 2.9 L Discharge - Discharge Clinical Impression: Tobacco use disorder, moderate, dependence, Cellulitis and abscess of hand Condition: Fair Disposition: ADMITTED INPATIENT Admitting Provider: Hospitalist Unit Admitted: Medical Floor
[2018-05-26 00:41] LABS: ABSOLUTE MONOCYTES # (MANUAL) 0.8 10^3/uL (0.1-1.4); ABSOLUTE NEUTROPHILS# (MANUAL) 21.5 10^3/uL (1.7-8.2); ANISOCYTOSIS 1+; BASOPHILS % (MANUAL) 0 % (0-2); EOSINOPHILS % (MANUAL) 0 % (0-6); LYMPHOCYTES % (MANUAL) 12 % (13-45); MONOCYTES % (MANUAL) 3 % (3-13); POLYCHROMASIA 1+; SEGMENTED NEUTROPHILS % (MAN) 85 % (42-78); TOTAL CELLS COUNTED 100
[2018-05-26 00:42] LABS: PLATELET COMMENT ADEQUATE
[2018-05-26] MEDS ORDERED: VANCOMYCIN HCL INJ 1000 MG VIAL IV ONE (00:46)
[2018-05-26] MEDS ORDERED: PIPERACILLIN/TAZOBACTAM 3.375 GM VIAL IV ONE (00:46)
[2018-05-26] MEDS ORDERED: MAGNESIUM HYDROXIDE SUSP 30 ML UDCUP PO PRN (01:05)
[2018-05-26] MEDS ORDERED: ONDANSETRON 4 MG TAB.RAPDIS PO PRN ×2 (01:05→10:30)
[2018-05-26] MEDS ORDERED: ONDANSETRON HCL INJ/PF 4 MG/2 ML SDV IV PRN ×2 (01:05→10:30)
[2018-05-26] MEDS ORDERED: MAG HYDROX/AL HYDROX/SIMETH SUSP 30 ML UDCUP PO PRN (01:05)
[2018-05-26] MEDS ORDERED: ALBUTEROL SULFATE 0.083% NEB 2.5 MG/3 ML AMPUL NEB PRN (01:12)
[2018-05-26] MEDS ORDERED: ACETAMINOPHEN 325 MG TABLET PO PRN (01:12)
[2018-05-26] MEDS ORDERED: ACETAMINOPHEN 650 MG SUPP.RECT PR PRN (01:12)
[2018-05-26] MEDS ORDERED: NICOTINE 21 MG/24 HR PATCH.TD24 TD PRN (01:12)
[2018-05-26 02:10] LABS: APPEARANCE,URINE CLOUDY; BILIRUBIN,URINE NEGATIVE (NEGATIVE); COLOR,URINE YELLOW; GLUCOSE, URINE NEGATIVE (NEGATIVE); KETONES,URINE NEGATIVE (NEGATIVE); LEUKOCYTE ESTERASE,URINE NEGATIVE (NEGATIVE); NITRITE,URINE NEGATIVE (NEGATIVE); PROTEIN,URINE 30 mg/dL (NEGATIVE); URINE SPECIFIC GRAVITY 1.025
[2018-05-26] MEDS ORDERED: NALBUPHINE HCL INJ 10 MG/1 ML AMPULE ONE (02:33)
[2018-05-26 02:40] LABS: URINE BARBITURATES SCREEN NEGATIVE; URINE BENZODIAZEPINES SCREEN NEGATIVE; URINE COCAINE SCREEN NEGATIVE; URINE MARIJUANA (THC) SCREEN NEGATIVE; URINE METHADONE SCREEN NEGATIVE; URINE PHENCYCLIDINE SCREEN NEGATIVE
[2018-05-26] MEDS: NALBUPHINE HCL INJ 10 MG/1 ML AMPULE IV PRN ×2 (02:51→05:48)
--- NOTE | 2018-05-26 03:59 | PDOC H&P ---
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 He admits that he got a piece of metal stuck in his left index finger 2 days ago while he was working on a car and since that time and his gradually in creased in pain and over the last 24 hours has increased substantially and swelling. He has also noted purulent drainage from the puncture site of the metallic foreign body. His pain is a constant, severe, throbbing, nonradiating, pressure of the entire left index finger. The pain is slightly relieved by elevation and is substantially worsened with flexion or palpation of his left index finger. He denies any associated symptoms. He admits numerous similar prior episodes, however none have been of this severity. In the emergency room he was found to have a 25,000 white blood count and drainage of his left index finger. Wound and blood cultures were obtained and he was started on empiric antibiotic therapy with Zosyn and vancomycin. Dr. Craig was consulted by the emergency room physician and asked patient be admitted by the hospitalist service for his consultation and treatment. Past Medical History Cardiac Medical History: Denies: Coronary Artery Disease, Hypertension Pulmonary Medical History: Reports: Asthma, Pneumonia Denies: Chronic Obstructive Pulmonary Disease (COPD), Respiratory Failure, Tuberculosis EENT Medical History: Reports: None Neurological Medical History: Denies: Migraine, Seizures Endocrine Medical History: Denies: Diabetes Mellitus Type 1, Diabetes Mellitus Type 2, Hyperthyroidism, Hypothyroidism Renal/ Medical History: Denies: Chronic Kidney Disease, Nephrolithiasis Malignancy Medical History: Reports: None GI Medical History: Denies: Cirrhosis, Hepatitis Musculoskeltal Medical History: Reports: Arthritis, Gout Denies: Fibromyalgia Skin Medical History: Denies: Eczema, Psoriasis Psychiatric Medical History: Reports: Substance Abuse, Tobacco Dependency Denies: Alcohol Dependency Traumatic Medical History: Reports: None Hematology: Denies: Anemia, Bleeding Tendencies Infectious Medical History: Reports: None Past Surgical History Past Surgical History: Reports: Orthopedic Surgery - 2006 Social History Information Source: Patient Smoking Status: Current Every Day Smoker Frequency of Alcohol Use: None Hx Recreational Drug Use: Yes Drugs: Other - IV Methamphetamine, last used 3-4 weeks ago Hx Prescription Drug Abuse: No - Advance Directive Resuscitation Status: Full Code Surrogate healthcare decision maker:: Lexie Booker Family History Family History: Hypertension Parental Family History Reviewed: Yes Children Family History Reviewed: No Sibling(s) Family History Reviewed.: Yes Medication/Allergy Home Medications: Cyclobenzaprine HCl [Flexeril 10 Mg Tablet] 10 mg PO TID PRN #15 tablet 07/12/15 Hydrocodone Bit/Acetaminophen [Hydrocodon-Acetaminophen 5-325] 1 each PO ASDIR PRN #15 tablet 07/12/15 Cetirizine HCl/Pseudoephedrine [Zyrtec-D 12 Hour Tablet] 1 tab.sr PO Q12 #30 tab.sr 05/07/16 Prednisone [Deltasone 20 mg Tablet] 3 tab PO DAILY 5 Days tablet 05/07/16 Tramadol HCl [Ultram 50 mg Tablet] 50 mg PO ASDIR PRN #20 tablet 05/07/16 Oxycodone HCl/Acetaminophen [Percocet 5-325 mg Tablet] 1 - 2 tab PO Q4H PRN #15 tablet 06/30/16 Clindamycin HCl [Cleocin 300 mg Capsule] 300 mg PO QID #40 capsule 12/03/16 Colchicine [Colchicine 0.6 mg Tablet] 0.6 mg PO ASDIR #3 tablet 12/03/16 Hydrocodone Bit/Acetaminophen [Hydrocodon-Acetaminophen 5-325] 1 each PO Q4HP PRN #15 tablet 09/03/17 Indomethacin [Indocin 50 Mg Capsule] 50 mg PO TID #20 capsule 09/03/17 Allergies/Adverse Reactions: No Known Allergies Allergy (Verified 09/03/17 07:30) Review of Systems Constitutional: ABSENT: chills, fever(s) Eyes: ABSENT: visual disturbances, other - Ocular pain Ears: ABSENT: hearing changes, other - Ear pain Nose, Mouth, and Throat: ABSENT: mouth pain, sore throat Cardiovascular: ABSENT: chest pain, palpitations Respiratory: ABSENT: cough, dyspnea Gastrointestinal: ABSENT: abdominal pain, constipation, diarrhea, nausea, vomiting Genitourinary: ABSENT: dysuria, hematuria Musculoskeletal: PRESENT: as per HPI - Painful swelling and purulent drainage of left index finger. ABSENT: back pain Integumentary: PRESENT: as per HPI. ABSENT: pruritus, rash Neurological: ABSENT: confusion, convulsions, memory loss, tremor(s) Psychiatric: ABSENT: anxiety, depression Endocrine: ABSENT: cold intolerance, heat intolerance Hematologic/Lymphatic: ABSENT: easy bleeding, easy bruising Physical Exam Vital Signs: Temp Pulse Resp BP Pulse Ox 98.7 F 112 H 18 142/81 H 91 L 05/25/18 23:20 05/25/18 23:20 05/25/18 23:20 05/25/18 23:20 05/25/18 23:20 Intake & Output 05/24/18 05/25/18 05/26/18 23:59 23:59 23:59 Weight 70.3 kg General appearance: PRESENT: no acute distress, cooperative Head exam: PRESENT: atraumatic, normocephalic Eye exam: PRESENT: conjunctiva pink. ABSENT: scleral icterus Ear exam: PRESENT: normal external ear exam. ABSENT: drainage Mouth exam: PRESENT: dry mucosa, neck supple Teeth exam: PRESENT: poor dentation Neck exam: ABSENT: JVD, thyromegaly, tracheal deviation Respiratory exam: PRESENT: clear to auscultation ronaldo, symmetrical, unlabored Cardiovascular exam: PRESENT: RRR. ABSENT: clicks, gallop, rubs Pulses: PRESENT: normal radial pulses, normal dorsalis pedis pul Vascular exam: PRESENT: normal capillary refill. ABSENT: pallor GI/Abdominal exam: PRESENT: normal bowel sounds, soft Rectal exam: PRESENT: deferred Extremities exam: PRESENT: other - Erythema, edema, induration and local tenderness with minimal purulent drainage from a puncture/laceration site on the lateral palmar aspect of the distal phalanx of the left index finger. ABSENT: calf tenderness, pedal edema Musculoskeletal exam: ABSENT: deformity, dislocation Neurological exam: PRESENT: alert, oriented to person, oriented to place, oriented to time, oriented to situation, CN II-XII grossly intact. ABSENT: motor sensory deficit Psychiatric exam: PRESENT: appropriate affect, normal mood Skin exam: PRESENT: dry, warm, other - Erythema, edema, induration and local te nderness with minimal purulent drainage from a puncture/laceration site on the lateral palmar aspect of the distal phalanx of the left index finger. ABSENT: jaundice, rash, urticaria Results Laboratory Results: 05/26/18 00:02 05/26/18 00:02 05/26/18 05/26/18 00:02 00:02 WBC 25.3 H RBC 4.00 L Hgb 10.7 L Hct 32.0 L MCV 80 MCH 26.7 L MCHC 33.4 RDW 15.4 H Plt Count 550 H Seg Neutrophils % Not Reportable Lymphocytes % Not Reportable Monocytes % Not Reportable Eosinophils % Not Reportable Basophils % Not Reportable Absolute Neutrophils Not Reportable Absolute Lymphocytes Not Reportable Absolute Monocytes Not Reportable Absolute Eosinophils Not Reportable Absolute Basophils Not Reportable Sodium 133.2 L Potassium 3.9 Chloride 96 L Carbon Dioxide 26 Anion Gap 11 BUN 17 Creatinine 0.76 Est GFR ( Amer) > 60 Est GFR (Non-Af Amer) > 60 Glucose 118 H Calcium 8.3 L Total Bilirubin 0.5 AST 131 H ALT 108 H Alkaline Phosphatase 158 H Total Protein 8.1 Albumin 2.9 L Impressions: Finger X-Ray 05/25/18 00:00 IMPRESSION: Soft tissue swelling/soft tissue injury. No acute osseous abnormality. copyright 2010 [employer]- All Rights Reserved Assessment & Plan - Diagnosis (1) Cellulitis of left index finger Is this a current diagnosis for this admission?: Yes (2) Tobacco use disorder, moderate, dependence Is this a current diagnosis for this admission?: Yes (3) History of intravenous drug abuse Is this a current diagnosis for this admission?: Yes (4) History of acute gouty arthritis Is this a current diagnosis for this admission?: Yes - Time Time Spent: 30 to 50 Minutes Critical Time spent with patient: Less than 15 minutes Smoking Cessation Education: 3 to 10 minutes Medications reviewed and adjusted accordingly: Yes Anticipated discharge: Home - Inpatient Certification Based on my medical assessment, after consideration of the patient's co morbidities, presenting symptoms, or acuity I expect that the services needed warrant INPATIENT care.: Yes I certify that my determination is in accordance with my understanding of Medicare's requirements for reasonable and necessary INPATIENT services [42 CFR 412.3e].: Yes Medical Necessity: Need for IV Antibiotics, Need for Surgery, Risk of Complication if Not Cared For in Hospital
[2018-05-26] MEDS: HEPARIN SOD (PORCINE) 5,000 UNIT/ML 1 ML SYRINGE SUBCUT SCH ×3 (05:48→21:13)
[2018-05-26] MEDS ORDERED: PIPERACILLIN/TAZOBACTAM 3.375 GM VIAL IV SCH (06:00)
--- NOTE | 2018-05-26 07:01 | PDOC CONSULTATION ---
Consultation Consult Date: 05/26/18 Consult reason:: Left index finger flexor Seda synovitis History of Present Illness Admission Date/PCP: 05/26/18 01:13 History of Present Illness: ROSMERY POLK JR is a 37 year old male Patient is a 37-year-old white male who presents with left nondominant index finger pain status post a penetrating injury while working on an automobile. He states that he removed the metal shard but he subsequently had this progressive pain swelling and functional disability since that time. Past Medical History Cardiac Medical History: Denies: Coronary Artery Disease, Hypertension Pulmonary Medical History: Reports: Asthma, Pneumonia Denies: Chronic Obstructive Pulmonary Disease (COPD), Respiratory Failure, Tuberculosis EENT Medical History: Reports: None Neurological Medical History: Denies: Migraine, Seizures Endocrine Medical History: Denies: Diabetes Mellitus Type 1, Diabetes Mellitus Type 2, Hyperthyroidism, Hypothyroidism Renal/ Medical History: Denies: Chronic Kidney Disease, Nephrolithiasis Malignancy Medical History: Reports: None GI Medical History: Denies: Cirrhosis, Hepatitis Musculoskeltal Medical History: Reports: Arthritis, Gout Denies: Fibromyalgia Skin Medical History: Denies: Eczema, Psoriasis Psychiatric Medical History: Reports: Substance Abuse, Tobacco Dependency Denies: Alcohol Dependency, Depression Traumatic Medical History: Reports: None Hematology: Denies: Anemia, Bleeding Tendencies Infectious Medical History: Reports: None Past Surgical History Past Surgical History: Reports: Orthopedic Surgery - 2007 Social History Information Source: Patient, [facility] Records Smoking Status: Current Every Day Smoker Cigarettes Packs Per Day: 2 Frequency of Alcohol Use: None Hx Recreational Drug Use: Yes Drugs: Other - IV Methamphetamine, last used 3-4 weeks ago Hx Prescription Drug Abuse: No - Advance Directive Resuscitation Status: Full Code Family History Family History: Reviewed & Not Pertinent, Hypertension Parental Family History Reviewed: No Children Family History Reviewed: No Sibling(s) Family History Reviewed.: No Medication/Allergy Home Medications: Cyclobenzaprine HCl [Flexeril 10 Mg Tablet] 10 mg PO TID PRN #15 tablet 07/12/15 Hydrocodone Bit/Acetaminophen [Hydrocodon-Acetaminophen 5-325] 1 each PO ASDIR PRN #15 tablet 07/12/15 Cetirizine HCl/Pseudoephedrine [Zyrtec-D 12 Hour Tablet] 1 tab.sr PO Q12 #30 tab.sr 05/07/16 Prednisone [Deltasone 20 mg Tablet] 3 tab PO DAILY 5 Days tablet 05/07/16 Tramadol HCl [Ultram 50 mg Tablet] 50 mg PO ASDIR PRN #20 tablet 05/07/16 Oxycodone HCl/Acetaminophen [Percocet 5-325 mg Tablet] 1 - 2 tab PO Q4H PRN #15 tablet 06/30/16 Clindamycin HCl [Cleocin 300 mg Capsule] 300 mg PO QID #40 capsule 12/03/16 Colchicine [Colchicine 0.6 mg Tablet] 0.6 mg PO ASDIR #3 tablet 12/03/16 Hydrocodone Bit/Acetaminophen [Hydrocodon-Acetaminophen 5-325] 1 each PO Q4HP PRN #15 tablet 09/03/17 Indomethacin [Indocin 50 Mg Capsule] 50 mg PO TID #20 capsule 09/03/17 Allergies/Adverse Reactions: No Known Allergies Allergy (Verified 09/03/17 07:30) Review of Systems All systems: as per PMH Physical Exam Vital Signs: Temp Pulse Resp BP Pulse Ox 37.2 C 103 H 20 129/72 H 96 05/26/18 03:14 05/26/18 03:14 05/26/18 03:14 05/26/18 03:14 05/26/18 03:14 Intake & Output 05/24/18 05/25/18 05/26/18 06:59 06:59 06:59 Intake Total 0 Output Total 0 Balance 0 Weight 69.7 kg Physical Exam: Patient is a relatively thin middle-aged white male lying in hospital bed. Left upper extremity is held in his lap. There is considerable swelling with skin breakdown over the volar surface at the level of the DIP crease. There is streaking erythema that moves proximally through the palmar crease and up to the radiocarpal crease. There is diffuse tenderness to palpation. There is brisk capillary refill. General appearance: PRESENT: mild distress, thin Head exam: PRESENT: normocephalic Respiratory exam: PRESENT: unlabored Cardiovascular exam: PRESENT: RRR Pulses: PRESENT: +1 pedal pulses bilateral Vascular exam: PRESENT: normal capillary refill GI/Abdominal exam: PRESENT: soft Rectal exam: PRESENT: deferred Extremities exam: PRESENT: other - Left index finger swollen erythematous tender to palpation. Passive range of motion is painful. Erythema extends proximally to the radiocarpal crease. There is brisk capillary refill. Neurological exam: PRESENT: alert, awake, oriented to person, oriented to place, oriented to time, oriented to situation. ABSENT: motor sensory deficit Psychiatric exam: PRESENT: appropriate affect, normal mood. ABSENT: homicidal ideation, suicidal ideation Skin exam: PRESENT: dry, intact, warm. ABSENT: cyanosis, rash Results Laboratory Results: 05/26/18 00:02 05/26/18 00:02 05/26/18 05/26/18 05/26/18 00:02 00:02 01:07 WBC 25.3 H RBC 4.00 L Hgb 10.7 L Hct 32.0 L MCV 80 MCH 26.7 L MCHC 33.4 RDW 15.4 H Plt Count 550 H Seg Neutrophils % Not Reportable Lymphocytes % Not Reportable Monocytes % Not Reportable Eosinophils % Not Reportable Basophils % Not Reportable Absolute Neutrophils Not Reportable Absolute Lymphocytes Not Reportable Absolute Monocytes Not Reportable Absolute Eosinophils Not Reportable Absolute Basophils Not Reportable Sodium 133.2 L Potassium 3.9 Chloride 96 L Carbon Dioxide 26 Anion Gap 11 BUN 17 Creatinine 0.76 Est GFR ( Amer) > 60 Est GFR (Non-Af Amer) > 60 Glucose 118 H Lactic Acid < 0.5 L Calcium 8.3 L Total Bilirubin 0.5 AST 131 H ALT 108 H Alkaline Phosphatase 158 H Total Protein 8.1 Albumin 2.9 L Urine Color Urine Appearance Urine pH Ur Specific [place] Urine Protein Urine Glucose (UA) Urine Ketones Urine Blood Urine Nitrite Ur Leukocyte Esterase Urine WBC (Auto) Urine RBC (Auto) 05/26/18 01:53 WBC RBC Hgb Hct MCV MCH MCHC RDW Plt Count Seg Neutrophils % Lymphocytes % Monocytes % Eosinophils % Basophils % Absolute Neutrophils Absolute Lymphocytes Absolute Monocytes Absolute Eosinophils Absolute Basophils Sodium Potassium Chloride Carbon Dioxide Anion Gap BUN Creatinine Est GFR ( Amer) Est GFR (Non-Af Amer) Glucose Lactic Acid Calcium Total Bilirubin AST ALT Alkaline Phosphatase Total Protein Albumin Urine Color YELLOW Urine Appearance CLOUDY Urine pH 5.0 Ur Specific [place] 1.025 Urine Protein 30 H Urine Glucose (UA) NEGATIVE Urine Ketones NEGATIVE Urine Blood MODERATE H Urine Nitrite NEGATIVE Ur Leukocyte Esterase NEGATIVE Urine WBC (Auto) 3 Urine RBC (Auto) 2 Impressions: Finger X-Ray 05/25/18 00:00 IMPRESSION: Soft tissue swelling/soft tissue injury. No acute osseous abnormality. copyright 2011 [employer]- All Rights Reserved Status: Imported from PACS Assessment & Plan - Diagnosis (1) Cellulitis of left index finger Is this a current diagnosis for this admission?: Yes Plan: 37-year-old white male with what I believed to be a flexor Seda synovitis of the left index finger pain. Plan will be for an I&D under choice anesthesia with subsequent administration of intravenous antibiotics. - Time Time Spent: 50 to 70 Minutes Anticipated discharge: Home with Homehealth Within: Other
[2018-05-26] MEDS ORDERED: BACITRACIN INJ 50,000 UNIT VIAL ONE (08:19)
[2018-05-26] MEDS: IPRATROPIUM BROMIDE 0.02% NEB 0.5 MG/2.5 ML AMPUL NEB SCH ×2 (08:22→15:46)
[2018-05-26] MEDS: BUDESONIDE NEB 0.5 MG/2 ML AMPUL NEB SCH ×2 (08:23→20:14)
[2018-05-26] MEDS: LEVALBUTEROL HCL NEB 1.25 MG/3 ML AMPUL NEB SCH ×2 (08:23→15:46)
[2018-05-26] MEDS ORDERED: LIDOCAINE 1% INJ-PF (10 MG/ML) 30 ML SDV ONE (08:29)
[2018-05-26] MEDS ORDERED: BUPIVACAINE HCL 0.25 % INJ/PF (2.5 MG/1 ML) 30 ML VIAL ONE (08:29)
[2018-05-26] MEDS ORDERED: FENTANYL CITRATE INJ/PF 100 MCG/2 ML AMPUL ONE (09:37)
[2018-05-26] MEDS ORDERED: MIDAZOLAM 2 MG/2 ML INJ ONE (09:37)
[2018-05-26] MEDS ORDERED: PROPOFOL INJ 200 MG/20 ML VIAL IV ONE (09:37)
[2018-05-26] MEDS ORDERED: ONDANSETRON HCL INJ/PF 4 MG/2 ML SDV ONE (09:37)
[2018-05-26] MEDS ORDERED: NALBUPHINE HCL INJ 10 MG/1 ML AMPULE IV PRN (10:19)
[2018-05-26] MEDS ORDERED: MORPHINE SULFATE 10 MG/ML INJ IV PRN ×2 (10:37→11:32)
[2018-05-26] MEDS ORDERED: PROMETHAZINE HCL INJ 25 MG/1 ML VIAL IV PRN (10:37)
[2018-05-26] MEDS ORDERED: DIPHENHYDRAMINE HCL 50 MG/ML VIAL IV PRN (10:37)
[2018-05-26] MEDS ORDERED: MEPERIDINE HCL/PF INJ 25 MG/1 ML DISP.SYRIN IV PRN (10:37)
[2018-05-26] MEDS ORDERED: FENTANYL CITRATE INJ/PF 100 MCG/2 ML AMPUL IV PRN ×3 (10:37)
--- NOTE | 2018-05-26 10:55 | Operative Report ---
Operative Report DATE OF SURGERY: 05/26/18 PREOPERATIVE DIAGNOSIS: Left index finger flexor tendon purulent tenosynovitis OPERATION: Irrigation debridement left flexor tendon sheath index finger SURGEON: ANDREW HALL ANESTHESIA: LMAC ESTIMATED BLOOD LOSS: Minimal PROCEDURE: With the patient supine on the operating table the left upper extremities prepped and draped in a sterile fashion. The limb is elevated for exsanguination tourniquet inflated to 280 torr. A digital finger block is made with a combination of Marcaine, and Xylocaine. Subsequently a zigzag type incision is made from the ulnar border of the distal aspect of the distal phalanx across to the radial border at the DIP crease likewise diagonally to the ulnar border of the PIP crease and then again radially to the MCP crease. The flexor tendon sheath is examined throughout it. Cultures are taken. The wound is irrigated using 3 L normal saline containing bacitracin and gravity feed through an Angiocath. The tourniquet is subsequently deflated. Hemostasis obtained with bipolar cautery. The wound is loosely approximated using up and nylon suture. A sterile compressive dressing was applied and the patient's retu rn to PACU in satisfactory condition.
[2018-05-26] MEDS ORDERED: RINGERS SOLUTION,LACTATED 1,000 ML IV PRN (11:31)
[2018-05-26] MEDS: PIPERACILLIN SODIUM/TAZOBACTAM 3.375 GM in NORMAL SALINE 100 ML IV SCH ×3 (13:07→21:12)
[2018-05-26] MEDS: FAMOTIDINE INJ/PF 20 MG/2 ML SDV IV SCH ×2 (13:08→21:12)
[2018-05-26] MEDS: DOCUSATE SODIUM 100 MG CAPSULE PO SCH ×2 (13:08→17:02)
[2018-05-26] MEDS ORDERED: VANCOMYCIN HCL INJ 1000 MG VIAL IV SCH (14:00)
[2018-05-26] MEDS: VANCOMYCIN HCL 1,000 MG in DEXTROSE 5%-WATER 250 ML IV SCH ×2 (14:17→21:12)
[2018-05-26] MEDS: OXYCODONE HCL IR 5 MG TABLET PO PRN (22:07)
[2018-05-27] MEDS: LEVALBUTEROL HCL NEB 1.25 MG/3 ML AMPUL NEB SCH ×3 (00:22→16:31)
[2018-05-27] MEDS: IPRATROPIUM BROMIDE 0.02% NEB 0.5 MG/2.5 ML AMPUL NEB SCH ×3 (00:22→16:31)
[2018-05-27] MEDS: PIPERACILLIN SODIUM/TAZOBACTAM 3.375 GM in NORMAL SALINE 100 ML IV SCH ×4 (03:21→21:11)
[2018-05-27] MEDS: OXYCODONE HCL IR 5 MG TABLET PO PRN ×3 (04:00→20:09)
[2018-05-27] MEDS: HEPARIN SOD (PORCINE) 5,000 UNIT/ML 1 ML SYRINGE SUBCUT SCH ×3 (05:45→21:10)
[2018-05-27 06:24] LABS: VANCOMYCIN,TROUGH 9.2 ug/mL (5.0-20.0)
[2018-05-27 06:25] LABS: ABSOLUTE BASOPHILS # (AUTO) 0.1 10^3/uL (0.0-0.2); ABSOLUTE EOSINOPHILS # (AUTO) 0.1 10^3/uL (0.0-0.6); ABSOLUTE LYMPHOCYTES (AUTO) 2.6 10^3/uL (0.5-4.7); ABSOLUTE MONOCYTES (AUTO) 1.5 10^3/uL (0.1-1.4); ABSOLUTE NEUT (AUTO) 15.2 10^3/uL (1.7-8.2); BASOPHILS % (AUTO) 0.5 % (0-2); EOSINOPHILS % (AUTO) 0.5 % (0-6); HEMATOCRIT 32.6 % (37.9-51.0); HEMOGLOBIN 10.6 g/dL (13.5-17.0); LYMPHOCYTES % (AUTO) 13.2 % (13-45); MEAN CORPUSCULAR HGB CONC 32.6 g/dL (32.0-36.0); MEAN CORPUSCULAR VOLUME 80 fl (80-97); MONOCYTES % (AUTO) 7.8 % (3-13); PLATELET COUNT 502 10^3/uL (150-450); RED BLOOD COUNT 4.08 10^6/uL (4.35-5.55); RED CELL DISTRIBUTION WIDTH 15.3 % (11.5-14.0); TOTAL CELLS COUNTED % (AUTO) 100 %; WHITE BLOOD COUNT 19.5 10^3/uL (4.0-10.5)
[2018-05-27 06:26] LABS: ANION GAP 6 (5-19); BLOOD UREA NITROGEN 9 mg/dL (7-20); CALCIUM 7.7 mg/dL (8.4-10.2); CARBON DIOXIDE 27 mmol/L (22-30); CHLORIDE 103 mmol/L (98-107); GLUCOSE 101 mg/dL (75-110); POTASSIUM 3.8 mmol/L (3.6-5.0); SODIUM 136.4 mmol/L (137-145)
[2018-05-27] MEDS: VANCOMYCIN HCL 1,000 MG in DEXTROSE 5%-WATER 250 ML IV SCH ×2 (06:40→13:13)
[2018-05-27] MEDS: BUDESONIDE NEB 0.5 MG/2 ML AMPUL NEB SCH ×2 (07:52→20:46)
--- NOTE | 2018-05-27 08:49 | PDOC PROGRESS REPORT ---
Subjective Progress Note for:: 05/27/18 Subjective:: Patient laying in bed comfortably. No issues overnight. Current pain controlled. Denies fever chills or sweats. Reason For Visit: CELLULITIS WITH ABSCESS LEFT INDEX FINGER Physical Exam Vital Signs: Temp Pulse Resp BP Pulse Ox 97.9 F 81 12 129/76 H 96 05/27/18 07:06 05/27/18 07:06 05/27/18 07:06 05/27/18 07:06 05/27/18 07:06 Intake & Output 05/26/18 05/27/18 05/28/18 06:59 06:59 06:59 Intake Total 0 4425 250 Output Total 0 2004 Balance 0 2420 250 Weight 69.7 kg 69.6 kg Musculoskeletal exam: PRESENT: other - Left upper extremity: Dressing clean/dry/intact. Tenderness to palpation. Pain with attempted range of motion. Results Laboratory Results: 05/27/18 05:43 05/27/18 05:43 05/27/18 05/27/18 05:43 05:43 WBC 19.5 H RBC 4.08 L Hgb 10.6 L Hct 32.6 L MCV 80 MCH 26.0 L MCHC 32.6 RDW 15.3 H Plt Count 502 H Seg Neutrophils % 78.0 Lymphocytes % 13.2 Monocytes % 7.8 Eosinophils % 0.5 Basophils % 0.5 Absolute Neutrophils 15.2 H Absolute Lymphocytes 2.6 Absolute Monocytes 1.5 H Absolute Eosinophils 0.1 Absolute Basophils 0.1 Sodium 136.4 L Potassium 3.8 Chloride 103 Carbon Dioxide 27 Anion Gap 6 BUN 9 Creatinine 0.67 Est GFR ( Amer) > 60 Est GFR (Non-Af Amer) > 60 Glucose 101 Calcium 7.7 L Magnesium 2.2 Impressions: Finger X-Ray 05/25/18 00:00 IMPRESSION: Soft tissue swelling/soft tissue injury. No acute osseous abnormality. copyright 2010 [employer]- All Rights Reserved Assessment & Plan - Diagnosis (1) Flexor tenosynovitis of finger Is this a current diagnosis for this admission?: Yes Plan: Postop day #1 status post irrigation and debridement flexor sheath left index finger 1. Continue vancomycin and Zosyn may adjust according to culture results. If patient's wound healing appropriately and pain controlled with anticipate discharge home on p.o. antibiotics. 2. Continue compressive dressing as per Dr. Craig's recommendation anticipate dressing change on postop day #2.
[2018-05-27] MEDS: FAMOTIDINE INJ/PF 20 MG/2 ML SDV IV SCH ×2 (09:06→21:12)
[2018-05-27] MEDS: DOCUSATE SODIUM 100 MG CAPSULE PO SCH ×2 (09:06→17:10)
--- NOTE | 2018-05-27 14:08 | PDOC PROGRESS REPORT ---
Subjective Progress Note for:: 05/27/18 Subjective:: This is a 37 year old male who presented to the emergency room with gradually worsening painful swelling of his left index finger for the last 2 days. He admits that he got a piece of metal stuck in his left index finger 2 days ago while he was working on a car and since that time and his gradually increased in pain and over the last 24 hours has increased substantially and swelling. He has also noted purulent drainage from the puncture site of the metallic foreign body. Patient was admitted for left index finger cellulitis. Orthopedics was consulted and patient was found to have left index finger flexor tendon purulent tenosynovitis for which he underwent irrigation debridement yesterday 05/26/18. No acute event overnight. Patient says pain pain is well controlled. No fever or chills. Reason For Visit: CELLULITIS WITH ABSCESS LEFT INDEX FINGER Physical Exam Vital Signs: Temp Pulse Resp BP Pulse Ox 97.9 F 81 12 129/76 H 96 05/27/18 07:06 05/27/18 07:06 05/27/18 07:06 05/27/18 07:06 05/27/18 07:06 Intake & Output 05/26/18 05/27/18 05/28/18 06:59 06:59 06:59 Intake Total 0 4425 550 Output Total 0 2005 Balance 0 2420 550 Weight 153 lb 10.595 oz 153 lb 7.068 oz General appearance: PRESENT: no acute distress, well-developed, well-nourished Head exam: PRESENT: atraumatic, normocephalic Eye exam: PRESENT: conjunctiva pink, EOMI, PERRLA. ABSENT: scleral icterus Ear exam: PRESENT: normal external ear exam Neck exam: ABSENT: carotid bruit, JVD, lymphadenopathy, thyromegaly Respiratory exam: PRESENT: clear to auscultation ronaldo. ABSENT: rales, rhonchi, wheezes Cardiovascular exam: PRESENT: RRR. ABSENT: diastolic murmur, rubs, systolic murmur Pulses: PRESENT: normal dorsalis pedis pul GI/Abdominal exam: PRESENT: normal bowel sounds, soft. ABSENT: distended, guarding, mass, organolmegaly, rebound, tenderness Rectal exam: PRESENT: deferred Extremities exam: PRESENT: other - post op dressing onleft hand in place Neurological exam: PRESENT: alert, awake, oriented to person, oriented to place, oriented to time, oriented to situation, CN II-XII grossly intact. ABSENT: motor sensory deficit Results Laboratory Results: 05/27/18 05:43 05/27/18 05:43 05/27/18 05/27/18 05:43 05:43 WBC 19.5 H RBC 4.08 L Hgb 10.6 L Hct 32.6 L MCV 80 MCH 26.0 L MCHC 32.6 RDW 15.3 H Plt Count 502 H Seg Neutrophils % 78.0 Lymphocytes % 13.2 Monocytes % 7.8 Eosinophils % 0.5 Basophils % 0.5 Absolute Neutrophils 15.2 H Absolute Lymphocytes 2.6 Absolute Monocytes 1.5 H Absolute Eosinophils 0.1 Absolute Basophils 0.1 Sodium 136.4 L Potassium 3.8 Chloride 103 Carbon Dioxide 27 Anion Gap 6 BUN 9 Creatinine 0.67 Est GFR ( Amer) > 60 Est GFR (Non-Af Amer) > 60 Glucose 101 Calcium 7.7 L Magnesium 2.2 Impressions: Finger X-Ray 05/25/18 00:00 IMPRESSION: Soft tissue swelling/soft tissue injury. No acute osseous abnormality. copyright 2010 [employer]- All Rights Reserved Assessment & Plan - Diagnosis (1) Cellulitis of left index finger Is this a current diagnosis for this admission?: Yes Plan: Patient was noted to have left index finger flexor tendon purulent tenosynovitis for which he underwent irrigation debridement yesterday 05/26/18 by ortho. Noted ortho recommendations to continue IV antibiotics today. Culture results pending. Dressing change tomorrow per ortho. Possible discharge tomorrow with oral antibiotics pending culture results. - Time Time Spent with patient: 15-24 minutes
--- NOTE | 2018-05-27 18:47 | Progress Note ---
Provider Note Provider Note: Paged by RN at 6:45 PM and informed that patient eloped from the floor. Security has been notified. Patient apparently returned back to the floor.
[2018-05-27] MEDS: VANCOMYCIN HCL 1,500 MG in DEXTROSE 5%-WATER 250 ML IV SCH (22:00)
[2018-05-28] MEDS: LEVALBUTEROL HCL NEB 1.25 MG/3 ML AMPUL NEB SCH ×2 (00:07→08:31)
[2018-05-28] MEDS: IPRATROPIUM BROMIDE 0.02% NEB 0.5 MG/2.5 ML AMPUL NEB SCH ×2 (00:07→08:31)
[2018-05-28] MEDS: PIPERACILLIN SODIUM/TAZOBACTAM 3.375 GM in NORMAL SALINE 100 ML IV SCH (03:24)
[2018-05-28] MEDS: HEPARIN SOD (PORCINE) 5,000 UNIT/ML 1 ML SYRINGE SUBCUT SCH (06:07)
[2018-05-28] MEDS: VANCOMYCIN HCL 1,500 MG in DEXTROSE 5%-WATER 250 ML IV SCH (06:09)
[2018-05-28 06:13] LABS: ABSOLUTE BASOPHILS # (AUTO) 0.1 10^3/uL (0.0-0.2); ABSOLUTE EOSINOPHILS # (AUTO) 0.2 10^3/uL (0.0-0.6); ABSOLUTE MONOCYTES (AUTO) 1.4 10^3/uL (0.1-1.4); ABSOLUTE NEUT (AUTO) 14.6 10^3/uL (1.7-8.2); BASOPHILS % (AUTO) 0.6 % (0-2); EOSINOPHILS % (AUTO) 1.2 % (0-6); HEMATOCRIT 33.3 % (37.9-51.0); LYMPHOCYTES % (AUTO) 15.6 % (13-45); MEAN CORPUSCULAR HEMOGLOBIN 26.9 pg (27.0-33.4); MEAN CORPUSCULAR VOLUME 82 fl (80-97); MONOCYTES % (AUTO) 7.3 % (3-13); PLATELET COUNT 548 10^3/uL (150-450); RED BLOOD COUNT 4.08 10^6/uL (4.35-5.55); RED CELL DISTRIBUTION WIDTH 15.2 % (11.5-14.0); SEGMENTED NEUTROPHILS % (AUTO) 75.3 % (42-78); TOTAL CELLS COUNTED % (AUTO) 100 %; WHITE BLOOD COUNT 19.4 10^3/uL (4.0-10.5)
[2018-05-28 06:20] LABS: ANION GAP 7 (5-19); BLOOD UREA NITROGEN 14 mg/dL (7-20); CALCIUM 7.9 mg/dL (8.4-10.2); CARBON DIOXIDE 24 mmol/L (22-30); CHLORIDE 106 mmol/L (98-107); GLUCOSE 99 mg/dL (75-110); POTASSIUM 4.1 mmol/L (3.6-5.0)
--- NOTE | 2018-05-28 07:12 | PDOC PROGRESS REPORT ---
Subjective Progress Note for:: 05/28/18 Reason For Visit: CELLULITIS WITH ABSCESS LEFT INDEX FINGER Left index finger tenosynovitis postop day 2. Cultures pending. Patient continues to have significant pain. Physical Exam Vital Signs: Temp Pulse Resp BP Pulse Ox 37.0 C 97 20 118/70 98 05/27/18 19:21 05/27/18 19:21 05/27/18 19:21 05/27/18 19:21 05/27/18 19:21 Intake & Output 05/27/18 05/28/18 05/29/18 06:59 06:59 06:59 Intake Total 4425 2071 Output Total 2004 Balance 2420 2072 Weight 69.6 kg 69.4 kg General appearance: PRESENT: mild distress Respiratory exam: PRESENT: unlabored Cardiovascular exam: PRESENT: RRR Vascular exam: PRESENT: normal capillary refill Extremities exam: PRESENT: other - Dressing is changed today. Wound is well approximated with sutures. There is scant serous drainage. Erythema is dramatically decreased as is induration and swelling. There is brisk capillary refill. Active range of motion is painful laterally for the index finger but also for the long finger. Results Laboratory Results: 05/28/18 05:34 05/28/18 05:34 05/28/18 05/28/18 05:34 05:34 WBC 19.4 H RBC 4.08 L Hgb 11.0 L Hct 33.3 L MCV 82 MCH 26.9 L MCHC 33.0 RDW 15.2 H Plt Count 548 H Seg Neutrophils % 75.3 Lymphocytes % 15.6 Monocytes % 7.3 Eosinophils % 1.2 Basophils % 0.6 Absolute Neutrophils 14.6 H Absolute Lymphocytes 3.0 Absolute Monocytes 1.4 Absolute Eosinophils 0.2 Absolute Basophils 0.1 Sodium 137.0 Potassium 4.1 Chloride 106 Carbon Dioxide 24 Anion Gap 7 BUN 14 Creatinine 1.02 Est GFR ( Amer) > 60 Est GFR (Non-Af Amer) > 60 Glucose 99 Calcium 7.9 L Magnesium 2.3 Impressions: Finger X-Ray 05/25/18 00:00 IMPRESSION: Soft tissue swelling/soft tissue injury. No acute osseous abnormality. copyright 2010 [email or web address]- All Rights Reserved Status: Imported from PACS Assessment & Plan - Diagnosis (1) Cellulitis of left index finger Is this a current diagnosis for this admission?: Yes Plan: Patient currently on vancomycin and Zosyn pending cultures. Overall the physical appearance of the digit is significantly improved. The patient is quite concerned about his 10-year-old daughter and being discharged that he can care for her. I explained that he might be better to remain hospitalized until we identify the pathogen such that the antibiotics can be more directed. However from a wound standpoint I think the patient could be discharged at this point. - Time Time Spent with patient: 15-24 minutes Anticipated discharge: Home Within: Other
[2018-05-28 07:57] VITALS: BP 116/68
[2018-05-28] MEDS: BUDESONIDE NEB 0.5 MG/2 ML AMPUL NEB SCH (08:31)
--- NOTE | 2018-05-28 18:31 | PDOC DISCHARGE SUMMARY ---
General - Admit/Disc Date/PCP Admission Date/Primary Care Provider: 05/26/18 01:13 Discharge Date: 05/28/18 - Discharge Diagnosis (1) Cellulitis of left index finger Is this a current diagnosis for this admission?: Yes - Additional Information Resuscitation Status: Full Code Discharge Diet: As Tolerated Discharge Activity: Activity As Tolerated Prescriptions: Doxycycline Hyclate 150 mg PO BID 7 Days #14 tablet. Home Medications: Doxycycline Hyclate 150 mg PO BID 7 Days #14 tablet. 05/28/18 History of Present Illness History of Present Illness: Admitting hospitalist's H&P: ROSMERY POLK JR is a 37 year old male who presented to the emergency room with gradually worsening painful swelling of his left index finger for the last 2 days. He admits that he got a piece of metal stuck in his left index finger 2 d ays ago while he was working on a car and since that time and his gradually increased in pain and over the last 24 hours has increased substantially and swelling. He has also noted purulent drainage from the puncture site of the metallic foreign body. His pain is a constant, severe, throbbing, nonradiating, pressure of the entire left index finger. The pain is slightly relieved by elevation and is substantially worsened with flexion or palpation of his left index finger. He denies any associated symptoms. He admits numerous similar prior episodes, however none have been of this severity. In the emergency room he was found to have a 25,000 white blood count and drainage of his left index finger. Wound and blood cultures were obtained and he was started on empiric antibiotic therapy with Zosyn and vancomycin. Dr. Craig was consulted by the emergency room physician and asked patient be admitted by the hospitalist service for his consultation and treatment. Hospital Course Hospital Course: This is a 37 year old male who presented to the emergency room with gradually worsening painful swelling of his left index finger for the last 2 days. He admits that he got a piece of metal stuck in his left index finger 2 days ago while he was working on a car and since that time and his gradually increased in pain and over the last 24 hours has increased substantially and swelling. He has also noted purulent drainage from the puncture site of the metallic foreign body while doing a car repair. Patient was admitted for left index finger cellulitis. Orthopedics was consulted and patient was found to have left index finger flexor tendon purulent tenosynovitis for which he underwent irrigation debridement yesterday 05/26/18. He was stared on vancomycin and Zosyn. Patient did improve and pain control was also optimized. Dressing change was also done by ortho. On day of discharge, patient insisted on going home [place] as he says he needs to see his daughter at home. Explained we recommend awaiting for the cultures to come back later today but patient says he cannot wait. He was prescribed Doxycycline and went home. Fortunately, culture came back later in the afternoon which grew beta hemolytic strep. Physical Exam Vital Signs: Temp Pulse Resp BP Pulse Ox 97.5 F 70 16 116/68 94 05/28/18 09:46 05/28/18 09:46 05/28/18 09:46 05/28/18 07:03 05/28/18 09:46 Intake & Output 05/27/18 05/28/18 05/29/18 06:59 06:59 06:59 Intake Total 4425 2072 605 Output Total 2004 Balance 2420 2072 605 Weight 153 lb 7.068 oz 153 lb 0.013 oz General appearance: PRESENT: no acute distress, well-developed, well-nourished Head exam: PRESENT: atraumatic, normocephalic Eye exam: PRESENT: conjunctiva pink, EOMI, PERRLA. ABSENT: scleral icterus Ear exam: PRESENT: normal external ear exam Mouth exam: PRESENT: moist, tongue midline Neck exam: ABSENT: carotid bruit, JVD, lymphadenopathy, thyromegaly Respiratory exam: PRESENT: clear to auscultation ronaldo. ABSENT: rales, rhonchi, wheezes Pulses: PRESENT: normal dorsalis pedis pul GI/Abdominal exam: PRESENT: normal bowel sounds, soft. ABSENT: distended, guarding, mass, organolmegaly, rebound, tenderness Rectal exam: PRESENT: deferred Extremities exam: PRESENT: other - dressing in place Neurological exam: PRESENT: alert, awake, oriented to person, oriented to place, oriented to time, oriented to situation, CN II-XII grossly intact. ABSENT: motor sensory deficit Results Laboratory Results: 05/28/18 05:34 05/28/18 05:34 05/28/18 05/28/18 05:34 05:34 WBC 19.4 H RBC 4.08 L Hgb 11.0 L Hct 33.3 L MCV 82 MCH 26.9 L MCHC 33.0 RDW 15.2 H Plt Count 548 H Seg Neutrophils % 75.3 Lymphocytes % 15.6 Monocytes % 7.3 Eosinophils % 1.2 Basophils % 0.6 Absolute Neutrophils 14.6 H Absolute Lymphocytes 3.0 Absolute Monocytes 1.4 Absolute Eosinophils 0.2 Absolute Basophils 0.1 Sodium 137.0 Potassium 4.1 Chloride 106 Carbon Dioxide 24 Anion Gap 7 BUN 14 Creatinine 1.02 Est GFR ( Amer) > 60 Est GFR (Non-Af Amer) > 60 Glucose 99 Calcium 7.9 L Magnesium 2.3 05/26/18 10:35 Finger - Abscess Gram Stain - Final 05/26/18 10:35 Finger - Abscess Wound Culture - Final Group A Beta Streptococcus No Anaerobic Organisms 05/26/18 10:34 Finger - Abscess Gram Stain - Final 05/26/18 10:34 Finger - Abscess Wound Culture - Final Group A Beta Streptococcus No Anaerobic Organisms Impressions: Finger X-Ray 05/25/18 00:00 IMPRESSION: Soft tissue swelling/soft tissue injury. No acute osseous abnormality. copyright 2010 [employer]- All Rights Reserved Qualifiers - * PATIENT BEING DISCHARGED WITH ANY OF THE FOLLOWING DIAGNOSIS: No
== END 2018-05-28 10:15 | disposition home health service (06) | DRG 581 ==
LOC: ER 23:04 → EH 05-26 01:13 → 3W 05-26 02:35
PROVIDERS: ADMIT Emergency Medicine; ATTEND Emergency Medicine
PROC: 3E0F73Z Introduction of Anti-inflammatory into Respiratory Tract, Via Natural or Artificial Opening (ICD-10-PCS; 2018-05-26)
PROC: 0JBK0ZZ Excision of Left Hand Subcutaneous Tissue and Fascia, Open Approach (ICD-10-PCS; principal; 2018-05-26 08:30)
DX: L02.512 Cutaneous abscess of left hand (principal); L03.012 Cellulitis of left finger; B95.0 Streptococcus, group A, as the cause of diseases classified elsewhere; W26.8XXA Contact with other sharp object(s), not elsewhere classified, initial encounter; Y92.9 Unspecified place or not applicable; M65.142 Other infective (teno)synovitis, left hand; M10.9 Gout, unspecified; F17.210 Nicotine dependence, cigarettes, uncomplicated; Z79.899 Other long term (current) drug therapy; Z82.49 Family history of ischemic heart disease and other diseases of the circulatory system
CPT/HCPCS: 01810; 36415; 80048; 80053; 80202; 80307; 81001; 83605; 83735; 85025; 87040; 87070; 87075; 87077; 87205; 94640; 99285; J1644; J2250; J2300; J2405; J2543; J2704; J3010; J3370; J3490; J7060; S0028

== ENCOUNTER 2019-03-29 06:10 | Emergency (ER) | payer OTHER ==
[2019-03-29] MEDS ORDERED: KETOROLAC TROMETHAMINE INJ/PF 30 MG/1 ML SDV IV ONE (07:12)
--- NOTE | 2019-03-29 07:13 | ER Document Report ---
ED Medical Screen (RME) - General Chief Complaint: Hand Swelling Stated Complaint: SWOLLEN HAND Time Seen by Provider: 03/29/19 07:06 Mode of Arrival: Ambulatory Information source: Patient Notes: Patient presents complaining of left hand pain redness and swelling for the past 3 days. Patient denies any injury. Patient does state he has had surgery on the left hand previously due to an infection. Patient reports a remote history of IV drug use although none recent. I have greeted and performed a rapid initial assessment of this patient. A comprehensive ED assessment and evaluation of the patient, analysis of test results and completion of the medical decision making process will be conducted by additional ED providers. TRAVEL OUTSIDE OF THE [place] IN LAST 30 DAYS: No - Related Data Allergies/Adverse Reactions: No Known Allergies Allergy (Verified 03/29/19 06:28) Past Medical History - Social History Frequency of alcohol use: None Drug Abuse: None - Past Medical History Cardiac Medical History: Denies: Hx Coronary Artery Disease, Hx Hypertension Pulmonary Medical History: Reports: Hx Asthma, Hx Pneumonia Denies: Hx COPD, Hx Respiratory Failure, Hx Tuberculosis Neurological Medical History: Denies: Hx Migraine, Hx Seizures Endocrine Medical History: Denies: Hx Diabetes Mellitus Type 1, Hx Diabetes Mellitus Type 2, Hx Hyperthyroidism, Hx Hypothyroidism Renal/ Medical History: Denies: Hx Peritoneal Dialysis GI Medical History: Denies: Hx Cirrhosis, Hx Hepatitis Musculoskeltal Medical History: Reports Hx Arthritis, Denies Hx Fibromyalgia, Reports Hx Gout Skin Medical History: Denies Hx Eczema, Denies Hx Psoriasis Psychiatric Medical History: Denies: Hx Depression Infectious Medical History: Denies: Hx Hepatitis Past Surgical History: Reports: Hx Orthopedic Surgery - 2006-right knee - Immunizations Hx Diphtheria, Pertussis, Tetanus Vaccination: No Physical Exam - Vital signs Vitals: Temp Pulse Resp BP Pulse Ox 98.1 F 71 17 126/81 H 100 03/29/19 06:14 03/29/19 06:14 03/29/19 06:14 03/29/19 06:14 03/29/19 06:14 - General General appearance: Appears well, Alert Notes: Left hand tenderness with 2+ edema and erythema to dorsal aspect of hand. Course - Vital Signs Vital signs: Temp Pulse Resp BP Pulse Ox 98.1 F 71 17 126/81 H 100 03/29/19 06:14 03/29/19 06:14 03/29/19 06:14 03/29/19 06:14 03/29/19 06:14
--- NOTE | 2019-03-29 07:31 | ER Document Report ---
ED General - General Chief Complaint: Hand Swelling Stated Complaint: SWOLLEN HAND Time Seen by Provider: 03/29/19 07:06 Primary Care Provider: [facility] [Provider Group] - Follow up as needed Mode of Arrival: Ambulatory TRAVEL OUTSIDE OF THE [place] IN LAST 30 DAYS: No - HPI Notes: 38M R hand dominant presents ambulatory to ED for 3d of progressive L hand pain, overlying erythema & moderate swelling. he cannot recall any penetrating or blunt injuries or exacerbating activities. denies any recent ivdu in months, though agrees does have more remote h/o ivdu c/b "infection in same, L, hand for which he needed surgery and wash out. denies any retained surgical hardware/prosthetics or FBs. denies f/c/s/n/v. denies any sensory changes or palmar involvement of hand. reports most pain and swelling has been limited to dorsum of hand w/o significant wrist involvement - Related Data Allergies/Adverse Reactions: No Known Allergies Allergy (Verified 03/29/19 06:28) Past Medical History - General Information source: Patient - Social History Smoking Status: Current Every Day Smoker Frequency of alcohol use: None Drug Abuse: None Family History: Reviewed & Not Pertinent, Hypertension Patient has suicidal ideation: No Patient has homicidal ideation: No - Past Medical History Cardiac Medical History: Denies: Hx Coronary Artery Disease, Hx Hypertension Pulmonary Medical History: Reports: Hx Asthma, Hx Pneumonia Denies: Hx COPD, Hx Respiratory Failure, Hx Tuberculosis Neurological Medical History: Denies: Hx Migraine, Hx Seizures Endocrine Medical History: Denies: Hx Diabetes Mellitus Type 1, Hx Diabetes Mellitus Type 2, Hx Hyperthyroidism, Hx Hypothyroidism Renal/ Medical History: Denies: Hx Peritoneal Dialysis GI Medical History: Denies: Hx Cirrhosis, Hx Hepatitis Musculoskeletal Medical History: Reports Hx Arthritis, Denies Hx Fibromyalgia, Reports Hx Gout Skin Medical History: Denies Hx Eczema, Denies Hx Psoriasis Psychiatric Medical History: Denies: Hx Depression Infectious Medical History: Denies: Hx Hepatitis Past Surgical History: Reports: Hx Orthopedic Surgery - 2006-right knee - Immunizations Hx Diphtheria, Pertussis, Tetanus Vaccination: No Review of Systems - Review of Systems Constitutional: No symptoms reported EENT: No symptoms reported Cardiovascular: No symptoms reported Respiratory: No symptoms reported Gastrointestinal: No symptoms reported Genitourinary: No symptoms reported Male Genitourinary: No symptoms reported Musculoskeletal: See HPI. denies: Joint swelling Skin: No symptoms reported Hematologic/Lymphatic: No symptoms reported Neurological/Psychological: No symptoms reported Physical Exam - Vital signs Vitals: Temp Pulse Resp BP Pulse Ox 98.1 F 71 17 126/81 H 100 03/29/19 06:14 03/29/19 06:14 03/29/19 06:14 03/29/19 06:14 03/29/19 06:14 Interpretation: Normal - Notes Notes: L hand: overlying erythema, warmth moderate swelling limited to dorsum of hand w/o significant wrist involvement. no evidence on thorough exam including interwebs of any wounds/skin breakdown. no palmar involvement or evidence of deeper space infection. is able to flex/extend at all mcp, pips, and dips. all distributions of med/rad/ulnar nn intact in sens and motor functioning. - General General appearance: Appears well, Alert In distress: None - nontoxic appearing - HEENT Head: Normocephalic, Atraumatic Eyes: Normal Pupils: PERRL - Respiratory Respiratory status: No respiratory distress Chest status: Nontender Breath sounds: Normal Chest palpation: Normal - Cardiovascular Rhythm: Regular Heart sounds: Normal auscultation Murmur: No - Abdominal Inspection: Normal Distension: No distension Bowel sounds: Normal Tenderness: Nontender Organomegaly: No organomegaly - Back Back: Normal, Nontender - Extremities General upper extremity: Normal inspection, Nontender, Normal color, Normal ROM, Normal temperature General lower extremity: Normal inspection, Nontender, Normal color, Normal ROM, Normal temperature, Normal weight bearing. No: Sarah's sign - Neurological Neuro grossly intact: Yes Cognition: Normal Orientation: AAOx4 Karina Coma Scale Eye Opening: Spontaneous Karina Coma Scale Verbal: Oriented [place] Coma Scale Motor: Obeys Commands Karina Coma Scale Total: 15 Speech: Normal Motor strength normal: LUE, RUE, LLE, RLE Sensory: Normal - Psychological Associated symptoms: Normal affect, Normal mood - Skin Skin Temperature: Warm Skin Moisture: Dry Skin Color: Normal Course - Re-evaluation Re-evalutation: discussed w/ pt this is a trial of outpt abx which he must fill immediately upon loeaving ER and start as prescribed, and he should start to see improvement in 2 day, if instead he notes worsening after 2d he must return for evaluation. offered addiction substance resources but says he's not using . he is also to return for f/c/s inability to tolerate his abx meds or other concerns. he will elevate the extremity a few times a day and while resting/sleeping. - Vital Signs Vital signs: Temp Pulse Resp BP Pulse Ox 97.6 F 66 14 133/84 H 97 03/29/19 09:47 03/29/19 09:47 03/29/19 09:47 03/29/19 09:47 03/29/19 09:47 - Laboratory Result Diagrams: 03/29/19 07:35 03/29/19 07:35 Laboratory results interpreted by me: 03/29/19 03/29/19 07:35 07:35 RDW 14.3 H ESR 32 H Chloride 111 H Glucose 128 H - Diagnostic Test Radiology results interpreted by me: 03/29/19 07:30 Currently pending the radiologist official read but on my review there is some soft tissue swelling over the metacarpal area but does not seem to be extending proximally to the wrist specifically there is no foreign objects or fractures or other bony pathology I can note. Hand X-Ray 03/29/19 00:00 IMPRESSION: No acute osseous findings. Discharge - Discharge Clinical Impression: Cellulitis of hand, left, History of acute gouty arthritis Cellulitis Qualifiers: Site of cellulitis: other site Qualified Code(s): L03.818 - Cellulitis of other sites Disposition: HOME, SELF-CARE Additional Instructions: Please return to the emergency department if despite antibiotics there is worsening of the redness on the skin or if patient develops fevers greater then 100.4, or if there is worsening of significant swelling specifically at the wrist joint. Prescriptions: Ibuprofen 600 mg PO Q6HWA 2 Days #10 tablet Sulfamethoxazole/Trimethoprim [Bactrim Ds Tablet] 2 tab PO BID 10 Days #20 tablet Ibuprofen 800 mg PO TID 4 Days #12 tablet Referrals: [facility] [Provider Group] - Follow up as needed
--- NOTE | 2019-03-29 07:49 | RADIOLOGY REPORT (SQ) ---
CLINICAL HISTORY: swelling; pain COMPARISON: None. TECHNIQUE: XR HAND 3 OR MORE VIEWS 03/29/2019 12:00 AM CDT FINDINGS: There is no fracture. Joint spaces are preserved. There is extensive dorsal soft tissue swelling. IMPRESSION: No acute osseous findings.
[2019-03-29 07:52] LABS: ABSOLUTE BASOPHILS # (AUTO) 0.1 10^3/uL (0.0-0.2); ABSOLUTE EOSINOPHILS # (AUTO) 0.1 10^3/uL (0.0-0.6); ABSOLUTE LYMPHOCYTES (AUTO) 2.6 10^3/uL (0.5-4.7); ABSOLUTE MONOCYTES (AUTO) 0.6 10^3/uL (0.1-1.4); ABSOLUTE NEUT (AUTO) 6.2 10^3/uL (1.7-8.2); EOSINOPHILS % (AUTO) 1.2 % (0-6); HEMATOCRIT 42.6 % (37.9-51.0); HEMOGLOBIN 14.4 g/dL (13.5-17.0); LYMPHOCYTES % (AUTO) 27.4 % (13-45); MEAN CORPUSCULAR HEMOGLOBIN 27.9 pg (27.0-33.4); MEAN CORPUSCULAR HGB CONC 33.8 g/dL (32.0-36.0); MEAN CORPUSCULAR VOLUME 83 fl (80-97); MONOCYTES % (AUTO) 5.8 % (3-13); PLATELET COUNT 237 10^3/uL (150-450); RED BLOOD COUNT 5.16 10^6/uL (4.35-5.55); RED CELL DISTRIBUTION WIDTH 14.3 % (11.5-14.0); SEGMENTED NEUTROPHILS % (AUTO) 64.6 % (42-78); TOTAL CELLS COUNTED % (AUTO) 100 %; WHITE BLOOD COUNT 9.6 10^3/uL (4.0-10.5)
[2019-03-29 08:19] LABS: ANION GAP 11 (5-19); BLOOD UREA NITROGEN 11 mg/dL (7-20); C-REACTIVE PROTEIN 7.5 mg/L (<10.0); CALCIUM 9.4 mg/dL (8.4-10.2); CARBON DIOXIDE 23 mmol/L (22-30); CHLORIDE 111 mmol/L (98-107); GLUCOSE 128 mg/dL (75-110); POTASSIUM 3.9 mmol/L (3.6-5.0)
[2019-03-29] MEDS ORDERED: CEPHALEXIN 500 MG CAPSULE PO ONE (08:24)
[2019-03-29] MEDS ORDERED: LIDOCAINE 1%/EPINEPHRINE INJ 20 ML VIAL INJ ONE (08:29)
[2019-03-29 08:59] LABS: ERYTHROCYTE SEDIMENTATION RATE 32 mm/hr (0-15)
[2019-03-29 09:48] VITALS: BP 133/84
== END 2019-03-29 10:06 | disposition home or self-care (01) ==
LOC: ER 06:10
DX: L03.114 Cellulitis of left upper limb (principal); M10.9 Gout, unspecified; M79.642 Pain in left hand; F17.200 Nicotine dependence, unspecified, uncomplicated
CPT/HCPCS: 99284; 96374; 36415; 87205; 87070; 85025; 85652; 87075; 86140; 80048; 73130; J3490; J1885

== ENCOUNTER 2019-07-02 15:34 | Emergency (ER) | payer SELFPAY ==
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
[2019-07-02 17:10] LABS: ABSOLUTE BASOPHILS # (AUTO) 0.1 10^3/uL (0.0-0.2); ABSOLUTE EOSINOPHILS # (AUTO) 0.1 10^3/uL (0.0-0.6); ABSOLUTE LYMPHOCYTES (AUTO) 1.5 10^3/uL (0.5-4.7); ABSOLUTE MONOCYTES (AUTO) 0.7 10^3/uL (0.1-1.4); ABSOLUTE NEUT (AUTO) 8.8 10^3/uL (1.7-8.2); BASOPHILS % (AUTO) 0.7 % (0-2); EOSINOPHILS % (AUTO) 0.7 % (0-6); HEMATOCRIT 39.2 % (37.9-51.0); HEMOGLOBIN 13.5 g/dL (13.5-17.0); LYMPHOCYTES % (AUTO) 13.1 % (13-45); MEAN CORPUSCULAR HEMOGLOBIN 28.5 pg (27.0-33.4); MEAN CORPUSCULAR HGB CONC 34.4 g/dL (32.0-36.0); MEAN CORPUSCULAR VOLUME 83 fl (80-97); PLATELET COUNT 197 10^3/uL (150-450); RED BLOOD COUNT 4.75 10^6/uL (4.35-5.55); RED CELL DISTRIBUTION WIDTH 13.8 % (11.5-14.0); SEGMENTED NEUTROPHILS % (AUTO) 79.5 % (42-78); TOTAL CELLS COUNTED % (AUTO) 100 %; WHITE BLOOD COUNT 11.1 10^3/uL (4.0-10.5)
[2019-07-02 17:29] LABS: ALBUMIN 3.9 g/dL (3.5-5.0); ALKALINE PHOSPHATASE 88 U/L (38-126); ANION GAP 7 (5-19); ASPARTATE AMINO TRANSFERASE 87 U/L (17-59); BILIRUBIN,TOTAL 0.8 mg/dL (0.2-1.3); BLOOD UREA NITROGEN 13 mg/dL (7-20); CALCIUM 9.1 mg/dL (8.4-10.2); CARBON DIOXIDE 26 mmol/L (22-30); CHLORIDE 104 mmol/L (98-107); GLUCOSE 111 mg/dL (75-110); TOTAL PROTEIN 7.5 g/dL (6.3-8.2)
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
[2019-07-02] MEDS ORDERED: NORMAL SALINE 1000 ML 1,000 ML IV ONE ×2 (20:45→22:51)
--- NOTE | 2019-07-02 21:57 | RADIOLOGY REPORT (SQ) ---
EXAM DESCRIPTION: Three views of the right ankle CLINICAL HISTORY: 38 years Male, ankle pain COMPARISON: None. FINDINGS: Bone mineralization is normal. Soft tissue swelling is noted laterally. There is a horizontal fracture of the distal fibula metaphysis which exits into the joint space below the talar dome. Ankle mortise is intact. An ankle effusion is noted. No erosions or periostitis. No osteophyte formation. IMPRESSION: Nondisplaced fracture of the distal fibula.
[2019-07-02] MEDS ORDERED: NALOXONE HCL INJ/PF 0.4 MG/1 ML SDV IV ONE (22:51)
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
--- NOTE | 2019-07-03 00:06 | RADIOLOGY REPORT (SQ) ---
Right knee radiographs: 07/02/2019 11:05 PM HOSPICE PATIENT CARE SECRETARY HISTORY: 38-year-old patient with right knee pain . TECHNIQUE: AP, oblique, and lateral images of the right knee were obtained. COMPARISON: None available FINDINGS: There are no findings to suggest an acute fracture or subluxation. A moderate suprapatellar joint effusion is seen. The visualized soft tissues are grossly unremarkable. No gross erosions or abnormal soft tissue calcifications are seen. There is mild tricompartmental joint space narrowing. There are a few calcified loose bodies seen around the right knee. IMPRESSION: There are no findings to suggest an acute fracture or subluxation within the right knee.
[2019-07-03 00:07] LABS: APPEARANCE,URINE CLEAR; BILIRUBIN,URINE NEGATIVE (NEGATIVE); COLOR,URINE YELLOW; GLUCOSE, URINE NEGATIVE (NEGATIVE); KETONES,URINE 20 mg/dL (NEGATIVE); PROTEIN,URINE NEGATIVE (NEGATIVE); URINE SPECIFIC GRAVITY 1.046
[2019-07-03 00:24] LABS: URINE BARBITURATES SCREEN NEGATIVE; URINE BENZODIAZEPINES SCREEN NEGATIVE; URINE COCAINE SCREEN NEGATIVE; URINE MARIJUANA (THC) SCREEN NEGATIVE; URINE METHADONE SCREEN NEGATIVE; URINE PHENCYCLIDINE SCREEN NEGATIVE
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
--- NOTE | 2019-07-03 01:42 | ER Document Report ---
Doctor's Note Notes: 07/03/19 01:41 pt checked out to this md. no evidence of tibial plateau fx noted per rad read of lower extremity ct
[2019-07-03 10:00] VITALS: BP 134/81
== END 2019-07-03 10:10 | disposition home or self-care (01) ==
LOC: ER 15:34
DX: S82.831A Other fracture of upper and lower end of right fibula, initial encounter for closed fracture (principal); S80.211A Abrasion, right knee, initial encounter; S40.819A Abrasion of unspecified upper arm, initial encounter; M25.461 Effusion, right knee; V29.40XA Motorcycle driver injured in collision with unspecified motor vehicles in traffic accident, initial encounter; Y93.89 Activity, other specified; F10.129 Alcohol abuse with intoxication, unspecified; F17.200 Nicotine dependence, unspecified, uncomplicated; F11.10 Opioid abuse, uncomplicated; F15.10 Other stimulant abuse, uncomplicated; R00.0 Tachycardia, unspecified; R40.0 Somnolence; R41.0 Disorientation, unspecified; J45.909 Unspecified asthma, uncomplicated
CPT/HCPCS: 36415; 80307 ×2; 82550; 85025; 80053; 81001; 73610; 73564; 73590; 70450; 71260; 72125; 74177; 73700; J2310; J7030; 96361; 96374; 99291